=== PATIENT | female | born 1990 | race Caucasian/White ===

== ENCOUNTER → 2023-06-21 09:50 | Outpatient (BNVA) | payer OTHER, SELFPAY | PROVIDERS: Visit Provider Physician Assistant | DX: S39.012A Strain of muscle, fascia and tendon of lower back, initial encounter (principal); X50.1XXA Overexertion from prolonged static or awkward postures, initial encounter | CPT/HCPCS: 99203 ==

== ENCOUNTER → 2023-06-26 13:51 | Outpatient (BNVA) | payer OTHER, SELFPAY | PROVIDERS: Visit Provider Physician Assistant Medical | DX: S39.012A Strain of muscle, fascia and tendon of lower back, initial encounter (principal); X50.1XXA Overexertion from prolonged static or awkward postures, initial encounter | CPT/HCPCS: 99213 ==

== ENCOUNTER → 2023-06-29 14:55 | Outpatient (BNVA) | payer OTHER, SELFPAY | PROVIDERS: Visit Provider Physician Assistant Medical | DX: S39.012D Strain of muscle, fascia and tendon of lower back, subsequent encounter (principal); X50.1XXD Overexertion from prolonged static or awkward postures, subsequent encounter | CPT/HCPCS: 99213 ==

== ENCOUNTER → 2023-07-19 13:45 | Outpatient (BNVA) | payer OTHER, SELFPAY | PROVIDERS: Visit Provider Physician Assistant Medical | DX: S39.012D Strain of muscle, fascia and tendon of lower back, subsequent encounter (principal); X50.1XXD Overexertion from prolonged static or awkward postures, subsequent encounter | CPT/HCPCS: 99213 ==

== ENCOUNTER → 2023-08-10 13:31 | Outpatient (BNVA) | payer OTHER, SELFPAY | PROVIDERS: Visit Provider Physician Assistant Medical | DX: S39.012D Strain of muscle, fascia and tendon of lower back, subsequent encounter (principal); X50.1XXD Overexertion from prolonged static or awkward postures, subsequent encounter | CPT/HCPCS: 99213 ==

== ENCOUNTER → 2023-08-30 10:58 | Outpatient (BNVA) | payer OTHER, SELFPAY | PROVIDERS: Visit Provider Physician Assistant Medical | DX: S39.012D Strain of muscle, fascia and tendon of lower back, subsequent encounter (principal); X50.1XXD Overexertion from prolonged static or awkward postures, subsequent encounter | CPT/HCPCS: 99213 ==

== ENCOUNTER 2023-09-25 17:55 | Outpatient (REF) | payer OTHER, SELFPAY ==
--- NOTE | ~2023-09-25 | MR_ITS ---
EXAMINATION: MR LUMBAR SPINE WITHOUT CONTRAST CLINICAL INFORMATION: Lumbar radiculopathy COMPARISON: None available. TECHNIQUE: MRI of the lumbar spine was obtained using routine sequences without contrast. FINDINGS: The visualized lumbar vertebrae are intact with normal alignment. No focal bone lesion with abnormal signal can be seen. Evaluation of the intervertebral discs show: T12/L1: Intervertebral disc height is normal, with normal T2 signal. No focal disc herniation is seen. Bilateral T12/L1 neuroforamina are patent. Bilateral apophyseal joints are intact with normal alignment. L-1/L-2: Intervertebral disc height is normal, with normal T2 signal. No focal disc herniation is seen. Bilateral L1-L2 neuroforamina are patent. Bilateral apophyseal joints are intact with normal alignment. L2/L3: Intervertebral disc height is normal, with normal T2 signal. No focal disc herniation is seen. Bilateral L2-L3 neuroforamina are patent. Bilateral apophyseal joints are intact with normal alignment. L3/L4: Intervertebral disc height is normal, with mild loss of T2 signal. Mild asymmetric right posterior disc protrusion mildly effacing right lateral recess is seen. Bilateral L3-L4 neuroforamina are patent. Bilateral apophyseal joints are intact with normal alignment. L4/L5: Intervertebral disc height is normal, with mild loss of T2 signal. No focal disc herniation is seen. Bilateral L4-L5 neuroforamina are patent. Bilateral apophyseal joints are intact with normal alignment. L5/S1: Intervertebral disc height is mildly decreased, with normal T2 signal. No focal disc herniation is seen. Bilateral L5-S1 neuroforamina are patent. Bilateral apophyseal joints are intact with normal alignment. Conus medullaris is seen normally at L1 level. MR/MR lumbar spine wo con IMPRESSION: 1. Mild asymmetric right posterior disc protrusion at L3-L4 mildly effacing right lateral recess. 2. Mild lumbar disc desiccation at L3-L4 and L4-L5.
== END 2023-09-25 17:56 | disposition home or self-care (01) ==
LOC: HO.MRI 17:55
PROVIDERS: Visit Provider Internal Medicine
DX: M54.50 Low back pain, unspecified (principal)
CPT/HCPCS: 72148

== ENCOUNTER → 2023-10-16 11:39 | Outpatient (BNVA) | payer OTHER, SELFPAY | PROVIDERS: Visit Provider Physician Assistant Medical | DX: M51.17 Intervertebral disc disorders with radiculopathy, lumbosacral region (principal) | CPT/HCPCS: 99213 ==

== ENCOUNTER 2023-10-26 09:47 | Outpatient (AMB) | payer OTHER, SELFPAY ==
--- NOTE | 2023-10-26 09:48 | A.OFFVIS_ITS ---
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 Patient reports work-related injury on 06/21/23 at [employer]. Worker's Comp case #[id number]. 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 Patient was evaluated at [facility] and was initially treated with muscle relaxant, oral steroids, Naproxen and Physical Therapy at [facility]. She had no improvement in pain and function with PT. She has tried to return to work with restrictions but given the nature of her work which involves heavy lifting, twisting, arching back and bending, she can return to work without restrictions. Pain affects her daily activities and functioning, mobility, sleep, work and social interactions. Lumbar spine was completed on 09/25/23, report is noted below. At this time, she has not reached maximum medical improvement and is interested to undergo therapeutic injection to alleviate pain and increase functioning with plans to return to workforce. Denies any fever, chills, abdominal or groin pain, weakness, foot drop, bladder or bowel dysfunction or saddle anesthesia. Oswestry Low Back Disability Score=18 (moderate disability) Location: Right sided lower back, occasionally radiates down right leg Duration: 1 year, worsening since 06/21/23 due work-related injury Characteristics of symptom or complaint: Aching, numbness, tightness, radiating, sore Aggravating or associated factors: Sitting, prolonged standing >walking, bending, twisting, arching back Relieving factors: Heating pad, TENS unit, cyclobenzaprine Treatment: PT at [facility], lumbar spine MRI [facility] Medical History (Updated 10/27/23 @ 19:04 by JOAN Veras) No pertinent past medical history Surgical History (Updated 10/27/23 @ 18:56 by JOAN Veras) No pertinent past surgical history Social History (Updated 10/26/23 @ 10:00 by Rachel Arzate) Alcohol intake: current Alcohol intake frequency: a few times a week Alcohol type: hard liquor and other Tobacco use type: Smokeless Tobacco Review of Systems Const All systems reviewed & are unremarkable except as noted in HPI and below Physical Exam Vital Signs: Last Vital Signs Pulse 76 10/26/23 09:58 BP 166/90 H 10/26/23 09:58 Pulse Ox 100 10/26/23 09:58 Oxygen Delivery Method Room Air 10/26/23 09:58 BMI result Body Mass Index 39.7 General: Appears afebrile. Alert and oriented. Mood and affect appropriate. Follows and participates in conversation appropriately. Respiratory effort is unlabored. No cough. Able to transition from sit to stand unassisted. Ambulates with bilaterally normal heel strike and toe off. General: Yes no CVA tenderness Back/Spine/Pelvis Other: Patient is able to walk and stand on heels and tip toes with no difficulties demonstrating good motor tone. No limping. Can flex forward to degrees and extend to 5-10 degrees before experiencing lumbar pain. Demonstrates 5/5 strength of quadriceps bilaterally as well as flexion/dorsiflexion of bilateral feet against resistance. 2+ pedal pulses bilaterally. Straight leg rise with dorsiflexion negative bilaterally. +2 patellar and achilles reflexes bilaterally. Facet loading test positive bilaterally. Penny sign, Renan?s, Pelvic compression and Stinchfield tests are negative bilaterally. No groin pain with I/E hip rotations. Significant paraspinals tenderness mostly on the right side, mid and lower back. Valsalva maneuver negative. Back: no CVA tenderness Cervical Spine: cervical ROM normal, cervical muscular tenderness and No C ervical spine tenderness Thoracic/Lumbar Spine: thoracic and lumbar spine normal to inspection, No Thoracic/lumbar spine scar(s), Lasegue's sign negative, straight leg raise ne gative bilaterally, pain with thoraco-lumbar ROM, paraspinal muscle tenderness on the right greater than left, No thoracic spinal tenderness and lumbar spinal tenderness at L3, at L4 and at L5 Pelvis: no buttock tenderness Sacroiliac joints: bilaterally nontender Extrem General: Yes capillary refill normal, Yes no clubbing, cyanosis or edema and Yes no calf tenderness Results Reviewed Results Reviewed: MR LUMBAR SPINE WITHOUT CONTRAST 09/25/23 CLINICAL INFORMATION: Lumbar radiculopathy COMPARISON: None available. TECHNIQUE: MRI of the lumbar spine was obtained using routine sequences without contrast. FINDINGS: The visualized lumbar vertebrae are intact with normal alignment. No focal bone lesion with abnormal signal can be seen. Evaluation of the intervertebral discs show: T12/L1: Intervertebral disc height is normal, with normal T2 signal. No focal disc herniation is seen. Bilateral T12/L1 neuroforamina are patent. Bilateral apophyseal joints are intact with normal alignment. L-1/L-2: Intervertebral disc height is normal, with normal T2 signal. No focal disc herniation is seen. Bilateral L1-L2 neuroforamina are patent. Bilateral apophyseal joints are intact with normal alignment. L2/L3: Intervertebral disc height is normal, with normal T2 signal. No focal disc herniation is seen. Bilateral L2-L3 neuroforamina are patent. Bilateral apophyseal joints are intact with normal alignment. L3/L4: Intervertebral disc height is normal, with mild loss of T2 signal. Mild asymmetric right posterior disc protrusion mildly effacing right lateral recess is seen. Bilateral L3-L4 neuroforamina are patent. Bilateral apophyseal joints are intact with normal alignment. L4/L5: Intervertebral disc height is normal, with mild loss of T2 signal. No focal disc herniation is seen. Bilateral L4-L5 neuroforamina are patent. Bilateral apophyseal joints are intact with normal alignment. L5/S1: Intervertebral disc height is mildly decreased, with normal T2 signal. No focal disc herniation is seen. Bilateral L5-S1 neuroforamina are patent. Bilateral apophyseal joints are intact with normal alignment. Conus medullaris is seen normally at L1 level. IMPRESSION: 1. Mild asymmetric right posterior disc protrusion at L3-L4 mildly effacing right lateral recess. 2. Mild lumbar disc desiccation at L3-L4 and L4-L5. Assessment & Plan Assessment & Plan (1) Protrusion of lumbar intervertebral disc: Code(s): M51.26 - Other intervertebral disc displacement, lumbar region Category: Medical (2) Lumbar radiculopathy: Code(s): M54.16 - Radiculopathy, lumbar region Category: Medical (3) Lumbar back pain with radiculopathy affecting right lower extremity: Code(s): M54.16 - Radiculopathy, lumbar region Category: Medical (4) Muscle spasm of back: Code(s): M62.830 - Muscle spasm of back Category: Medical Plan Lumbar spine imaging to assess stability with flexion and extension views, degree of degenerative changes, any subluxation, listhesis, or pars defects. Pain and back exam consistent with right posterior disc protrusion at L3-L4 level per recent MRI findings. Back pain has been resistant to conservative treatments, patient is interested in therapeutic injection to address her low back pain. Schedule right L3-L4 TFESI with local and fluoroscopy. Expectations, risks and benefits were reviewed. Patient is aware she will be contacted to schedule this procedure. Continue gentle stretching exercises, TENS unit, avoid heavy lifting and strenuous activity. Discussed importance of adequate hydration, good posture, weight optimization and proper body mechanics. Script provided for meloxicam, patient will stop naproxen and other NSAIDs while taking this. Side effects and precautions discussed with patient today. Continue cyclobenzaprine as needed. All questions were answered and the patient is in agreement of plan. Follow-up after injections and sooner as needed. Orders: Orders XR lumbar spine 4V min 10/26/23 M51.26 - Other intervertebral disc displacement, lumbar region, M54.16 - Radiculopathy, lumbar region Medications: New meloxicam Take it with food and full glass of water. Avoid other NSAIDs. 15 mg PO DAILY 30 days 30 tabs 0RF pain M51.26 - Other intervertebral disc displacement, lumbar region, M54.16 - Radiculopathy, lumbar region Discontinued naproxen Discontinued Reason: Doctor's Order 500 mg PO BID PRN 28 tabs 0RF back pain Coding Level of Care Code New Pt Level 4 (38160) Diagnoses Protrusion of lumbar intervertebral disc M51.26 Lumbar radiculopathy M54.16 Lumbar back pain with radiculopathy affecting right lower extremity M54.16 Muscle spasm of back M62.830
[2023-10-26 09:58] VITALS: BP 166/90; PULSE 76; O2SAT 100; BMI 39.7
== END 2023-10-26 10:42 | disposition home or self-care (01) ==
PROVIDERS: Visit Provider Nurse Practitioner Family
DX: M51.26 Other intervertebral disc displacement, lumbar region (principal); M54.16 Radiculopathy, lumbar region; M62.830 Muscle spasm of back
CPT/HCPCS: 99204

== ENCOUNTER 2023-10-26 09:47 | Outpatient (REF) | payer OTHER, SELFPAY ==
--- NOTE | ~2023-10-26 | XR_ITS ---
EXAMINATION: XR LUMBOSACRAL SPINE WITH OBLIQUES CLINICAL INFORMATION: Radiculopathy lumbar region. COMPARISON: None available. TECHNIQUE: 5 views of the lumbar spine. FINDINGS: Dextroscoliosis of the lumbar spine. IUD in the pelvis. Facet arthritis in the lower lumbar spine. Mild multilevel lumbar spondylosis with mild loss of disc space height at L5-S1. Degenerative changes in the bilateral sacroiliac joints, right greater than left. XR/XR lumbar spine 4V min IMPRESSION: 1. Mild multilevel lumbar spondylosis with mild loss of disc space height at L5-S1. 2. Facet arthritis in the lower lumbar spine.
== END 2023-10-26 09:48 | disposition home or self-care (01) ==
LOC: HO.XRAY 09:47
PROVIDERS: Visit Provider Nurse Practitioner Family
DX: M51.26 Other intervertebral disc displacement, lumbar region (principal); M54.16 Radiculopathy, lumbar region; M62.830 Muscle spasm of back
CPT/HCPCS: 72110; 99202

== ENCOUNTER → 2023-11-13 11:35 | Outpatient (BNVA) | payer OTHER, SELFPAY | PROVIDERS: Visit Provider Physician Assistant Medical | DX: M54.17 Radiculopathy, lumbosacral region (principal) | CPT/HCPCS: 99213 ==

== ENCOUNTER → 2023-12-12 13:08 | Outpatient (BNVA) | payer OTHER, SELFPAY | PROVIDERS: Visit Provider Physician Assistant Medical | DX: M54.16 Radiculopathy, lumbar region (principal) | CPT/HCPCS: 99213 ==

== ENCOUNTER 2023-12-21 06:11 | Outpatient (REF) | payer OTHER, SELFPAY | END 2023-12-21 06:12 | disposition home or self-care (01) | LOC: CF 06:11 | PROVIDERS: Visit Provider Internal Medicine | DX: M54.16 Radiculopathy, lumbar region (principal) | CPT/HCPCS: 64483; J1100; Q9967 ==

== ENCOUNTER 2023-12-21 12:42 | Outpatient (AMB) | payer OTHER, SELFPAY ==
[2023-12-21 12:49] VITALS: BP 195/93; PULSE 109; RESP 19; O2SAT 100
--- NOTE | 2023-12-21 13:11 | A.OFFVIS_ITS ---
Vital Signs 12/21/23 12:49 12/21/23 13:13 BP 195/93 H 174/93 H Blood Pressure Location Lt brachial Lt brachial Position Sitting Sitting Respiration 19 17 Pulse 109 H 83 Pulse Source Pulse Oximeter Pulse Oximeter Pulse Oximetry (%) 100 99 Oxygen Delivery Method Room Air Room Air Comment Pre-op Post-op Intake Visit Reasons: Right L3-L4 TFESI/ ATIVAN Allergies No Known Allergies Allergy (Verified 10/26/23 09:56) HPI HPI Right L3-L4 TFESI/ ATIVAN: Details: Patient presents for scheduled procedure. Denies any recent cough, cold, infection, fever or other significant changes in medical history since last office visit. [facility] Medical History (Updated 10/27/23 @ 19:04 by JOAN Veras) No pertinent past medical history Surgical History (Updated 10/27/23 @ 18:56 by JOAN Veras) No pertinent past surgical history Social History (Updated 10/26/23 @ 10:00 by Rachel Arzate) Alcohol intake: current Alcohol intake frequency: a few times a week Alcohol type: hard liquor and other Tobacco use type: Smokeless Tobacco Physical Exam Vital Signs: Last Vital Signs Pulse 83 12/21/23 13:13 Resp 17 12/21/23 13:13 BP 174/93 H 12/21/23 13:13 Pulse Ox 99 12/21/23 13:13 Oxygen Delivery Method Room Air 12/21/23 13:13 Office Procedures Details: Transforaminal epidural steroid injection, right L3-4 After obtaining written consent, pre-procedure blood pressure and heart rate were stable and recorded in the nursing record. The patient was placed in the prone position on the fluoroscopy table. The lumbosacral area was prepped with chloraprep, allowed to dry and draped in sterile fashion. Using fluoroscopy, the skin overlying our target was anesthetized with 0.5% lidocaine. A 22 gauge 3.5 inch spinal needle was advanced to the safe triangle in the upper pole of the right L3 foramen. No paresthesias were elicited with needle placement and aspiration was negative for blood and CSF. Correct needle position was confirmed with approximately 1 ml contrast dye (Omnipaque 180 mg/ml) injected under real-time fluoroscopy. No evidence of vascular or intrathecal uptake was seen and there was both epidural and per ipheral spread of the contrast agent. 10 mg dexamethasone plus 1 ml containing 0.5% lidocaine was slowly injected. The needle was flushed and removed. The skin was cleansed and a sterile bandages were applied. The patient tolerated the procedure well and no complications were encountered. Following the procedure the patient's vital signs were stable. The patient was discharged home in good condition with post-procedural instructions. Time Out: Immediately prior to the procedure, the following was verbally confirmed that there is a signed consent form and that the correct patient, planned procedure, site and side are consistent with documentation and that necessary equipment and/or blood products are available prior to the start of the case. Complications: none EBL: <5 cc 94034 - Lumbar/Sacral Procedure code (CPT) selection complete Assessment & Plan Assessment & Plan (1) Lumbar radiculopathy: Code(s): M54.16 - Radiculopathy, lumbar region Category: Medical Plan Patient is status post right L3-4 TFESI. Patient tolerated procedure well and was discharged home in stable condition with discharge instructions. All questions were answered. We will follow-up via telephone or in clinic to assess response to therapy. A follow-up appointment was made during today's visit. Orders: Orders FL guidance in treatment room Today M54.16 - Radiculopathy, lumbar region Medications: New lorazepam (Ativan) Take 30 minutes prior to arrival to procedure 1 mg PO ONCE 1 tab 0RF anxiety Coding Level of Care Code Procedure Only Diagnoses Lumbar radiculopathy M54.16 CPT Codes Transforaminal Epidural Steroid Inj - TESI 3: 90794 - Lumbar/Sacral ([id number])
[2023-12-21 13:13] VITALS: BP 174/93; PULSE 83; RESP 17; O2SAT 99
== END 2023-12-21 13:09 | disposition home or self-care (01) ==
LOC: HO.PMCPRC 12:42
PROVIDERS: Visit Provider Internal Medicine
DX: M54.16 Radiculopathy, lumbar region (principal)
CPT/HCPCS: 64483

== ENCOUNTER → 2024-01-02 10:54 | Outpatient (BNVA) | payer OTHER, SELFPAY | PROVIDERS: Visit Provider Physician Assistant Medical | DX: M54.16 Radiculopathy, lumbar region (principal) | CPT/HCPCS: 99213 ==

== ENCOUNTER 2024-01-18 09:55 | Outpatient (AMB) | payer OTHER, SELFPAY ==
--- NOTE | 2024-01-18 09:58 | MHC.OFFVIS ---
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 Colon. She reports 85% ongoing pain relief since procedure with significant improvement with walking, daily activities and sleep. Patient reports increased low back pain with prolonged sitting or standing and bending backwards reproduces mild to moderate pain. She continues to participate in PT and reports increased axial low back pain with stretching and laying supine during exercises. She returned back to work with restrictions yesterday and reports increased pain prolonged standing. Denies any bladder or bowel dysfunction or saddle anesthesia. Past Procedures: 12/21/23: Right L3-L4 TFESI-ongoing 85% pain relief PRIOR: Patient is a 33 years old female presents today with right sided low back pain. Patient reports work-related injury on 06/21/23 at [employer]. Worker's Comp case #[id number]. 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 Patient was evaluated at [facility] [place] [facility] and was initially treated with muscle relaxant, oral steroids, Naproxen and Physical Therapy at [facility]. She had no improvement in pain and function with PT. She has tried to return to work with restrictions but given the nature of her work which involves heavy lifting, twisting, arching back and bending, she can return to work without restrictions. Pain affects her daily activities and functioning, mobility, sleep, work and social interactions. Lumbar spine was completed on 09/25/23, report is noted below. At this time, she has not reached maximum medical improvement and is interested to undergo therapeutic injection to alleviate pain and increase functioning with plans to return to workforce. Denies any fever, chills, abdominal or groin pain, weakness, foot drop, bladder or bowel dysfunction or saddle anesthesia. Oswestry Low Back Disability Score=18 (moderate disability) Location: Right sided lower back, occasionally radiates down right leg Duration: 1 year, worsening since 06/21/23 due work-related injury Characteristics of symptom or complaint: Aching, numbness, tightness, radiating, sore Aggravating or associated factors: Sitting, prolonged standing >walking, bending, twisting, arching back Relieving factors: Heating pad, TENS unit, cyclobenzaprine Treatment: PT at [facility], lumbar spine MRI [facility] Medical History No pertinent past medical history Surgical History No pertinent past surgical history Social History Alcohol intake: current Alcohol intake frequency: a few times a week Alcohol type: hard liquor and other Tobacco use type: Smokeless Tobacco Review of Systems Const All systems reviewed & are unremarkable except as noted in HPI and below Physical Exam General: Appears afebrile. Alert and oriented. Mood and affect appropriate. Follows and participates in conversation appropriately. Respiratory effort is unlabored. No cough. Able to transition from sit to stand unassisted. Ambulates with bilaterally normal heel strike and toe off. General: Yes no CVA tenderness Back/Spine/Pelvis Other: Limited lumbar ROM with extension which reproduces moderate pain. Normal non-antalgic gait. No limping. Demonstrates 5/5 strength of quadriceps bilaterally as well as flexion/dorsiflexion of bilateral feet against resistance. 2+ pedal pulses bilaterally. Straight leg rise with dorsiflexion negative bilaterally. +2 patellar and achilles reflexes bilaterally. Facet loading test positive bilaterally. Penny sign, Renan?s, Pelvic compression and Stinchfield tests are negative bilaterally. No groin pain with I/E hip rotations. Valsalva maneuver negative. Back: no CVA tenderness Cervical Spine: cervical ROM normal, cervical muscular tenderness and No Cervical spine tenderness Thoracic/Lumbar Spine: thoracic and lumbar spine normal to inspection, No Thoracic/lumbar spine scar(s), Lasegue's sign negative, straight leg raise negative bilaterally, pain with thoraco-lumbar ROM, paraspinal muscle tenderness on the right greater than left, No thoracic spinal tenderness and lumbar spinal tenderness at L3, at L4 and at L5 Pelvis: no buttock tenderness Sacroiliac joints: bilaterally nontender Extrem General: Yes capillary refill normal, Yes no clubbing, cyanosis or edema and Yes no calf tenderness Results Reviewed Results Reviewed: MR LUMBAR SPINE WITHOUT CONTRAST 09/25/23 CLINICAL INFORMATION: Lumbar radiculopathy COMPARISON: None available. TECHNIQUE: MRI of the lumbar spine was obtained using routine sequences without contrast. FINDINGS: The visualized lumbar vertebrae are intact with normal alignment. No focal bone lesion with abnormal signal can be seen. Evaluation of the intervertebral discs show: T12/L1: Intervertebral disc height is normal, with normal T2 signal. No focal disc herniation is seen. Bilateral T12/L1 neuroforamina are patent. Bilateral apophyseal joints are intact with normal alignment. L-1/L-2: Intervertebral disc height is normal, with normal T2 signal. No focal disc herniation is seen. Bilateral L1-L2 neuroforamina are patent. Bilateral apophyseal joints are intact with normal alignment. L2/L3: Intervertebral disc height is normal, with normal T2 signal. No focal disc herniation is seen. Bilateral L2-L3 neuroforamina are patent. Bilateral apophyseal joints are intact with normal alignment. L3/L4: Intervertebral disc height is normal, with mild loss of T2 signal. Mild asymmetric right posterior disc protrusion mildly effacing right lateral recess is seen. Bilateral L3-L4 neuroforamina are patent. Bilateral apophyseal joints are intact with normal alignment. L4/L5: Intervertebral disc height is normal, with mild loss of T2 signal. No focal disc herniation is seen. Bilateral L4-L5 neuroforamina are patent. Bilateral apophyseal joints are intact with normal alignment. L5/S1: Intervertebral disc height is mildly decreased, with normal T2 signal. No focal disc herniation is seen. Bilateral L5-S1 neuroforamina are patent. Bilateral apophyseal joints are intact with normal alignment. Conus medullaris is seen normally at L1 level. IMPRESSION: 1. Mild asymmetric right posterior disc protrusion at L3-L4 mildly effacing right lateral recess. 2. Mild lumbar disc desiccation at L3-L4 and L4-L5. XR LUMBOSACRAL SPINE WITH OBLIQUES 10/26/23 CLINICAL INFORMATION: Radiculopathy lumbar region. FINDINGS: Dextroscoliosis of the lumbar spine. IUD in the pelvis. Facet arthritis in the lower lumbar spine. Mild multilevel lumbar spondylosis with mild loss of disc space height at L5-S1. Degenerative changes in the bilateral sacroiliac joints, right greater than left. IMPRESSION: 1. Mild multilevel lumbar spondylosis with mild loss of disc space height at L5-S1. 2. Facet arthritis in the lower lumbar spine. Assessment & Plan Assessment & Plan (1) Protrusion of lumbar intervertebral disc: Code(s): M51.26 - Other intervertebral disc displacement, lumbar region Category: Medical (2) Lumbar radiculopathy: Code(s): M54.16 - Radiculopathy, lumbar region Category: Medical (3) Lumbar back pain with radiculopathy affecting right lower extremity: Code(s): M54.16 - Radiculopathy, lumbar region Category: Medical (4) Muscle spasm of back: Code(s): M62.830 - Muscle spasm of back Category: Medical (5) Lumbosacral spondylosis: Code(s): M47.817 - Spondylosis without myelopathy or radiculopathy, lumbosacral region Category: Medical Plan Patient is one month status post right L3-L4 TFESI injection with partial improvement in her ADLs, mobility and sleep. She also has facetogenic and axial low back pain. Patient will continue with physical therapy and home exercise program. If no pain or function improvement after PT, will consider diagnostic lumbar medial branch blocks to address axial low back pain. Continue gentle stretching exercises, TENS unit, avoid heavy lifting and strenuous activity. Discussed importance of adequate hydration, good posture, weight optimization and proper body mechanics. Continue meloxicam and cyclobenzaprine as needed. Work noted provided today per patient's requests. She returned to work 01/17/24 with light duty restrictions. All questions were answered and the patient is in agreement of plan. Follow-up after injections and sooner as needed. Coding Level of Care Code Est Pt Level 4 (27708) Complex EM visit Add On G2211 Diagnoses Protrusion of lumbar intervertebral disc M51.26 Lumbar radiculopathy M54.16 Lumbar back pain with radiculopathy affecting right lower extremity M54.16 Muscle spasm of back M62.830 Lumbosacral spondylosis M47.817
[2024-01-18 10:02] VITALS: BP 164/86; PULSE 63; O2SAT 99; BMI 39.2
== END 2024-01-18 10:21 | disposition home or self-care (01) ==
PROVIDERS: Visit Provider Nurse Practitioner Family
DX: M51.26 Other intervertebral disc displacement, lumbar region (principal); M54.16 Radiculopathy, lumbar region; M62.830 Muscle spasm of back; M47.817 Spondylosis without myelopathy or radiculopathy, lumbosacral region
CPT/HCPCS: 99214; G2211

== ENCOUNTER → 2024-01-18 09:55 | Outpatient (BNVA) | payer OTHER, SELFPAY | PROVIDERS: Visit Provider Nurse Practitioner Family | DX: M51.26 Other intervertebral disc displacement, lumbar region (principal); M62.830 Muscle spasm of back; M47.26 Other spondylosis with radiculopathy, lumbar region; Z98.890 Other specified postprocedural states | CPT/HCPCS: 99212 ==

== ENCOUNTER → 2024-01-18 15:14 | Outpatient (BNVA) | payer OTHER, SELFPAY | PROVIDERS: Visit Provider Physician Assistant Medical | DX: M51.17 Intervertebral disc disorders with radiculopathy, lumbosacral region (principal); S39.012D Strain of muscle, fascia and tendon of lower back, subsequent encounter; X50.3XXD Overexertion from repetitive movements, subsequent encounter | CPT/HCPCS: 99213 ==

== ENCOUNTER → 2024-01-23 14:15 | Outpatient (BNVA) | payer OTHER, SELFPAY | PROVIDERS: Visit Provider Physician Assistant Medical | DX: M51.17 Intervertebral disc disorders with radiculopathy, lumbosacral region (principal) | CPT/HCPCS: 99213 ==

== ENCOUNTER → 2024-02-14 14:12 | Outpatient (BNVA) | payer OTHER, SELFPAY | PROVIDERS: Visit Provider Physician Assistant Medical | DX: M54.9 Dorsalgia, unspecified (principal) | CPT/HCPCS: 99213 ==

== ENCOUNTER → 2024-03-14 13:34 | Outpatient (BNVA) | payer OTHER, SELFPAY | PROVIDERS: Visit Provider Physician Assistant Medical | DX: M51.17 Intervertebral disc disorders with radiculopathy, lumbosacral region (principal) | CPT/HCPCS: 99213 ==

== ENCOUNTER 2024-03-26 12:53 | Outpatient (AMB) | payer OTHER, SELFPAY ==
--- NOTE | 2024-03-26 13:00 | MHC.OFFVIS ---
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 Denies any new recent injuries, trauma, or falls. She reports no radiation of pain since injection in November. However, her pain is predominantly axial with sacroiliac joint pain components. Pain increases with stretching, bending, standing, lifting, pulling, ADLs and work. She has been managing her symptoms with NSAIDs, heat pad and muscle relaxant. She has completed physical therapy and continues home exercise program but finds exercise and movements increase her symptoms. Denies any fever or chills, weakness, foot drop, bladder or bowel dysfunction or saddle anesthesia. Past Procedures: 12/21/23: Right L3-L4 TFESI-ongoing 85% pain relief PRIOR: Patient is a 33 years old female presents today with right sided low back pain. Patient reports work-related injury on 06/21/23 at [employer]. Worker's Comp case #[id number]. 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 Patient was [place] [facility] [place] [facility] and was initially treated with muscle relaxant, oral steroids, Naproxen and Physical Therapy at [facility]. She had no improvement in pain and function with PT. She has tried to return to work with restrictions but given the nature of her work which involves heavy lifting, twisting, arching back and bending, she can return to work without restrictions. Pain affects her daily activities and functioning, mobility, sleep, work and social interactions. Lumbar spine was completed on 09/25/23, report is noted below. At this time, she has not reached maximum medical improvement and is interested to undergo therapeutic injection to alleviate pain and increase functioning with plans to return to workforce. Denies any fever, chills, abdominal or groin pain, weakness, foot drop, bladder or bowel dysfunction or saddle anesthesia. Oswestry Low Back Disability Score=18 (moderate disability) Location: Right sided lower back, occasionally radiates down right leg Duration: 1 year, worsening since 06/21/23 due work-related injury Characteristics of symptom or complaint: Aching, numbness, tightness, radiating, sore Aggravating or associated factors: Sitting, prolonged standing >walking, bending, twisting, arching back Relieving factors: Heating pad, TENS unit, cyclobenzaprine Treatment: PT at [facility], lumbar spine MRI [facility] Medical History No pertinent past medical history Surgical History No pertinent past surgical history Social History Alcohol intake: current Alcohol intake frequency: a few times a week Alcohol type: hard liquor and other Tobacco use type: Smokeless Tobacco Review of Systems Const All systems reviewed & are unremarkable except as noted in HPI and below Physical Exam Vital Signs: Last Vital Signs Pulse 91 03/26/24 13:05 BP 183/97 H 03/26/24 13:05 Pulse Ox 98 03/26/24 13:05 Oxygen Delivery Method Room Air 03/26/24 13:05 BMI result Body Mass Index 40.5 General: Appears afebrile. Alert and oriented. Mood and affect appropriate. Follows and participates in conversation appropriately. Respiratory effort is unlabored. No cough. Able to transition from sit to stand unassisted. Ambulates with bilaterally normal heel strike and toe off. General: Yes no CVA tenderness Back/Spine/Pelvis Other: Limited lumbar ROM with extension which reproduces moderate pain. Normal non-antalgic gait. Demonstrates 5/5 strength of quadriceps bilaterally as well as flexion/dorsiflexion of bilateral feet against resistance. 2+ pedal pulses bilaterally. Straight leg rise with dorsiflexion negative bilaterally. +2 patellar and achilles reflexes bilaterally. Facet loading test positive bilaterally, right>left. Penny sign positive bilaterally, Renan?s, Pelvic compression and Stinchfield tests are positive on the right, equivocal on the left. No groin pain with I/E hip rotations. Valsalva maneuver negative. Back: no CVA tenderness Cervical Spine: cervical ROM normal, cervical muscular tenderness and No Cervical spine tenderness Thoracic/Lumbar Spine: thoracic and lumbar spine normal to inspection, No Thoracic/lumbar spine scar(s), Lasegue's sign negative, straight leg raise negative bilaterally, pain with thoraco-lumbar ROM, paraspinal muscle tenderness on the right greater than left, thoraco-lumbar ROM limited, No thoracic spinal tenderness and lumbar spinal tenderness at L3, at L4 and at L5 Pelvis: no buttock tenderness Sacroiliac joints: bilaterally nontender Extrem General: Yes capillary refill normal, Yes no clubbing, cyanosis or edema and Yes no calf tenderness Results Reviewed Results Reviewed: MR LUMBAR SPINE WITHOUT CONTRAST 09/25/23 CLINICAL INFORMATION: Lumbar radiculopathy COMPARISON: None available. TECHNIQUE: MRI of the lumbar spine was obtained using routine sequences without contrast. FINDINGS: The visualized lumbar vertebrae are intact with normal alignment. No focal bone lesion with abnormal signal can be seen. Evaluation of the intervertebral discs show: T12/L1: Intervertebral disc height is normal, with normal T2 signal. No focal disc herniation is seen. Bilateral T12/L1 neuroforamina are patent. Bilateral apophyseal joints are intact with normal alignment. L-1/L-2: Intervertebral disc height is normal, with normal T2 signal. No focal disc herniation is seen. Bilateral L1-L2 neuroforamina are patent. Bilateral apophyseal joints are intact with normal alignment. L2/L3: Intervertebral disc height is normal, with normal T2 signal. No focal disc herniation is seen. Bilateral L2-L3 neuroforamina are patent. Bilateral apophyseal joints are intact with normal alignment. L3/L4: Intervertebral disc height is normal, with mild loss of T2 signal. Mild asymmetric right posterior disc protrusion mildly effacing right lateral recess is seen. Bilateral L3-L4 neuroforamina are patent. Bilateral apophyseal joints are intact with normal alignment. L4/L5: Intervertebral disc height is normal, with mild loss of T2 signal. No focal disc herniation is seen. Bilateral L4-L5 neuroforamina are patent. Bilateral apophyseal joints are intact with normal alignment. L5/S1: Intervertebral disc height is mildly decreased, with normal T2 signal. No focal disc herniation is seen. Bilateral L5-S1 neuroforamina are patent. Bilateral apophyseal joints are intact with normal alignment. Conus medullaris is seen normally at L1 level. IMPRESSION: 1. Mild asymmetric right posterior disc protrusion at L3-L4 mildly effacing right lateral recess. 2. Mild lumbar disc desiccation at L3-L4 and L4-L5. XR LUMBOSACRAL SPINE WITH OBLIQUES 10/26/23 CLINICAL INFORMATION: Radiculopathy lumbar region. FINDINGS: Dextroscoliosis of the lumbar spine. IUD in the pelvis. Facet arthritis in the lower lumbar spine. Mild multilevel lumbar spondylosis with mild loss of disc space height at L5-S1. Degenerative changes in the bilateral sacroiliac joints, right greater than left. IMPRESSION: 1. Mild multilevel lumbar spondylosis with mild loss of disc space height at L5-S1. 2. Facet arthritis in the lower lumbar spine. Assessment & Plan Assessment & Plan (1) Protrusion of lumbar intervertebral disc: Code(s): M51.26 - Other intervertebral disc displacement, lumbar region Category: Medical (2) Muscle spasm of back: Code(s): M62.830 - Muscle spasm of back Category: Medical (3) Lumbosacral spondylosis: Code(s): M47.817 - Spondylosis without myelopathy or radiculopathy, lumbosacral region Category: Medical (4) Sacroiliac joint pain: Code(s): M53.3 - Sacrococcygeal disorders, not elsewhere classified Category: Medical Plan Schedule Diagnostic Bilateral L3-L4 DR L5 MBB with local and fluoroscopy. If she has significant relief from the diagnostic blocks for his axial low back pain, will consider either therapeutic injections, Sprint PNS or RFA depending on her preference. Informational pamphlets provided. Expectations, risks and benefits were reviewed. Patient is aware she will be contacted to schedule this procedure. Continue gentle stretching exercises, TENS unit, adequate hydration, good posture, weight optimization and proper body mechanics. Continue meloxicam, cyclobenzaprine and heat therapy as needed. All questions were answered and the patient is in agreement of plan. Follow-up after injections and sooner as needed. Coding Level of Care Code Est Pt Level 4 (00035) Complex EM visit Add On G2211 Diagnoses Protrusion of lumbar intervertebral disc M51.26 Muscle spasm of back M62.830 Lumbosacral spondylosis M47.817 Sacroiliac joint pain M53.3
[2024-03-26 13:05] VITALS: BP 183/97; PULSE 91; O2SAT 98; BMI 40.5
== END 2024-03-26 13:32 | disposition home or self-care (01) ==
PROVIDERS: Visit Provider Nurse Practitioner Family
DX: M51.26 Other intervertebral disc displacement, lumbar region (principal); M62.830 Muscle spasm of back; M47.817 Spondylosis without myelopathy or radiculopathy, lumbosacral region; M53.3 Sacrococcygeal disorders, not elsewhere classified
CPT/HCPCS: 99214; G2211

== ENCOUNTER → 2024-03-26 12:53 | Outpatient (BNVA) | payer OTHER, SELFPAY | PROVIDERS: Visit Provider Nurse Practitioner Family | DX: M54.16 Radiculopathy, lumbar region (principal); M62.830 Muscle spasm of back; M47.817 Spondylosis without myelopathy or radiculopathy, lumbosacral region; M53.3 Sacrococcygeal disorders, not elsewhere classified | CPT/HCPCS: 99212 ==

== ENCOUNTER 2024-04-11 08:57 | Outpatient (REF) | payer OTHER, SELFPAY ==
--- NOTE | ~2024-04-11 | FL_ITS ---
EXAMINATION: FL GUIDANCE ONLY HISTORY: M47.817 - Spondylosis without myelopathy or radiculopathy, lumbosacral r... COMPARISON: None available. TECHNIQUE: Fluoroscopy time: 0.2 minutes. Cumulative Dose: 3.09 mGy. DAP: 0.0340 uGy-m2 (microgray-meter squared). Images: 2. FINDINGS: Images demonstrate injection of the bilateral L3-4, L4-5, and L5-S1 facet joints, with a small amount of contrast material seen is joint. FL/FL guidance in treatment room IMPRESSION: Fluoroscopy during procedure. Please see procedure report for additional information. Electronically signed by: Kirt Ortega MD 04/15/2024 03:06 PM [place]
== END 2024-04-11 08:58 | disposition home or self-care (01) ==
LOC: CF 08:57
PROVIDERS: Visit Provider Internal Medicine
DX: M47.817 Spondylosis without myelopathy or radiculopathy, lumbosacral region (principal)
CPT/HCPCS: 64493; 64494; 99212; J2003; J2795; Q9967

== ENCOUNTER 2024-04-11 11:42 | Outpatient (AMB) | payer OTHER, SELFPAY ==
[2024-04-11 12:03] VITALS: BP 156/78; PULSE 99; O2SAT 98
--- NOTE | 2024-04-11 12:03 | MHC.AM.SUB ---
Vital Signs 04/11/24 12:03 04/11/24 12:22 BP 156/78 H 164/86 H Blood Pressure Location Lt brachial Lt brachial Position Sitting Sitting Pulse 99 79 Pulse Source Pulse Oximeter Pulse Oximeter Pulse Oximetry (%) 98 97 Oxygen Delivery Method Room Air Room Air Intake Visit Reasons: Shakeel Dx L3-L4-DR-L5 MBB/Ativan Allergies No Known Allergies Allergy (Verified 04/18/24 09:37) HPI HPI Shakeel Dx L3-L4-DR-L5 MBB/Ativan: Details: Patient presents for scheduled procedure. Denies any recent cough, cold, infection, fever or other significant changes in medical history since last office visit. Physical Exam Vital Signs: Last Vital Signs Pulse 79 04/11/24 12:22 BP 164/86 H 04/11/24 12:22 Pulse Ox 97 04/11/24 12:22 Oxygen Delivery Method Room Air 04/11/24 12:22 Office Procedures AMB Joint Injection/Aspiration Coding Procedure code (CPT) selection complete Lumbar/Sacral Facet Inj Details: Lumbar Medial Branch Block, bilateral L3, L4 medial branches and L5 Dorsal Ramus (2 levels, 3 nerves) After obtaining written consent, pre-procedure blood pressure and pulse were recorded and are in the nursing record for review. The patient was placed in a prone position. The respective lumbosacral area was prepped with chloraprep and draped in sterile fashion. The skin over the target medial branch nerves was anesthetized with 0.5% lidocaine. A 22 gauge 3.5 inch needle was inserted into the target medial branch nerve under fluoroscopic guidance. No paresthesias were elicited with needle placement and aspiration was negative for blood and CSF. Next, 0.2cc of omnipaque 180 was injected to verify positioning. Next 0.5 ml 0.5% ropivicaine was injected (0.5cc total per level). The identical procedure was performed at the remaining levels. The skin was cleansed and a sterile bandage was applied. Following the procedure the patient's vital signs were stable. The patient tolerated the procedure well and no complications were encountered. Following the procedure the patient's vital signs were stable. The patient was discharged home in good condition with post-procedural instructions. Time Out: Immediately prior to the procedure, the following was verbally confirmed that there is a signed consent form and that the correct patient, planned procedure, site and side are consistent with documentation and that necessary equipment and/or blood products are available prior to the start of the case. Complications: none EBL: <5 cc 12937 - with Fluoroscopy 98717 - second level, with Fluoroscopy Procedure code (CPT) selection complete [facility] Medical History No pertinent past medical history Surgical History No pertinent past surgical history Social History Alcohol intake: current Alcohol intake frequency: a few times a week Alcohol type: hard liquor and other Tobacco use type: Smokeless Tobacco Assessment & Plan Assessment & Plan (1) Lumbosacral spondylosis: Code(s): M47.817 - Spondylosis without myelopathy or radiculopathy, lumbosacral region Category: Medical Plan Patient is status post bilateral lower lumbar medial branch blocks. Patient tolerated procedure well and was discharged home in stable condition with discharge instructions. All questions were answered. We will follow-up via telephone or in clinic to assess response to therapy. A follow-up appointment was made during today's visit. Orders: Orders FL guidance in treatment room 04/11/24 M47.817 - Spondylosis without myelopathy or radiculopathy, lumbosacral region Medications: New lorazepam (Ativan) Take 30 minutes prior to arrival to procedure 1 mg PO ONCE 1 tab 0RF anxiety
[2024-04-11 12:22] VITALS: BP 164/86; PULSE 79; O2SAT 97
== END 2024-04-11 12:24 | disposition home or self-care (01) ==
LOC: HO.PMCPRC 11:42
PROVIDERS: Visit Provider Internal Medicine
DX: M47.817 Spondylosis without myelopathy or radiculopathy, lumbosacral region (principal)
CPT/HCPCS: 64493; 64494

== ENCOUNTER → 2024-04-11 14:19 | Outpatient (BNVA) | payer OTHER, SELFPAY | PROVIDERS: Visit Provider Physician Assistant Medical | DX: M51.17 Intervertebral disc disorders with radiculopathy, lumbosacral region (principal) | CPT/HCPCS: 99213 ==

== ENCOUNTER 2024-04-18 09:26 | Outpatient (AMB) | payer OTHER, SELFPAY ==
[2024-04-18 09:34] VITALS: BP 141/87; BMI 39.1
--- NOTE | 2024-04-18 09:34 | A.OFFVIS_ITS ---
Vital Signs 04/18/24 09:34 Height 5 ft 2.5 in Weight 217 lb BMI 39.1 BP 141/87 H Blood Pressure Location Rt brachial Position Sitting Intake Visit Reasons: s/p Shakeel Dx L3-L4-DR-L5 MBB Allergies No Known Allergies Allergy (Verified 04/18/24 09:37) HPI Comments Details: Patient presents today to assess response to Bilateral Diagnostic L3-L4-DR L5 MBB on 04/11/[address] Colon. Patient reports 100% pain relief for 4 days since procedure with significant improvement in her daily activities and functioning, ROM, and sleep. She has been back to work on a light duty. Back pain is predominantly axial with mild sacroiliac joint pain on the left. Patient continues with need to manage her symptoms with meloxicam, Tylenol, heating pad and muscle relaxant. She has completed physical therapy and continues home exercise program. Patient is interested to proceed with lumbar medial branch RFA for a longer term pain relief. Denies any fever or chills, weakness, foot drop, bladder or bowel dysfunction or saddle anesthesia. Past Procedures: 04/11/24: Bilateral Diagnostic L3-L4-DR L5 MBB- 100% pain relief for 4 days 12/21/23: Right L3-L4 TFESI-ongoing 85% pain relief PRIOR: Patient is a 33 years old female presents today with right sided low back pain. Patient reports work-related injury on 06/21/23 at [employer]. Worker's Comp case #[id number]. 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 Patient was evaluated at [facility] and was initially treated with muscle relaxant, oral steroids, Naproxen and Physical Therapy at [facility]. She had no improvement in pain and function with PT. She has tried to return to work with restrictions but given the nature of her work which involves heavy lifting, twisting, arching back and bending, she can return to work without restrictions. Pain affects her daily activities and functioning, mobility, sleep, work and social interactions. Lumbar spine was completed on 09/25/23, report is noted below. At this time, she has not reached maximum medical improvement and is interested to undergo therapeutic injection to alleviate pain and increase functioning with plans to return to workforce. Denies any fever, chills, abdominal or groin pain, weakness, foot drop, bladder or bowel dysfunction or saddle anesthesia. Oswestry Low Back Disability Score=18 (moderate disability) Location: Right sided lower back, occasionally radiates down right leg Duration: 1 year, worsening since 06/21/23 due work-related injury Characteristics of symptom or complaint: Aching, numbness, tightness, radiating, sore Aggravating or associated factors: Sitting, prolonged standing >walking, bending, twisting, arching back Relieving factors: Heating pad, TENS unit, cyclobenzaprine Treatment: PT at [facility], lumbar spine MRI [facility] Medical History No pertinent past medical history Surgical History No pertinent past surgical history Social History Alcohol intake: current Alcohol intake frequency: a few times a week Alcohol type: hard liquor and other Tobacco use type: Smokeless Tobacco Review of Systems Const All systems reviewed & are unremarkable except as noted in HPI and below Physical Exam Vital Signs: Last Vital Signs BP 141/87 H 04/18/24 09:34 BMI result Body Mass Index 39.1 General: Appears afebrile. Alert and oriented. Mood and affect appropriate. Follows and participates in conversation appropriately. Respiratory effort is unlabored. No cough. Able to transition from sit to stand unassisted. Ambulates with bilaterally normal heel strike and toe off. General: Yes no CVA tenderness Back/Spine/Pelvis Other: Limited lumbar ROM with extension which reproduces mild-moderate pain. Normal non-antalgic gait. Demonstrates 5/5 strength of quadriceps bilaterally as well as flexion/dorsiflexion of bilateral feet against resistance. 2+ pedal pulses bilaterally. Straight leg rise with dorsiflexion is negative bilaterally. +2 patellar and achilles reflexes bilaterally. Facet loading test positive bilatera lly, left>right. Penny sign positive bilaterally, Renan?s, Pelvic compression and Stinchfield tests are positive on the left. No groin pain with I/E hip rotations. Valsalva maneuver is negative. Back: no CVA tenderness Cervical Spine: cervical ROM normal, cervical muscular tenderness and No Cervical spine tenderness Thoracic/Lumbar Spine: thoracic and lumbar spine normal to inspection, No Thoracic/lumbar spine scar(s), Lasegue's sign negative, straight leg raise negative bilaterally, pain with thoraco-lumbar ROM, paraspinal muscle tenderness on the right greater than left, No thoracic spinal tenderness and lumbar spinal tenderness at L3, at L4 and at L5 Sacroiliac joints: on the right nontender and on the left tender to palpation Extrem General: Yes capillary refill normal, Yes no clubbing, cyanosis or edema and Yes no calf tenderness Results Reviewed Results Reviewed: MR LUMBAR SPINE WITHOUT CONTRAST 09/25/23 CLINICAL INFORMATION: Lumbar radiculopathy COMPARISON: None available. TECHNIQUE: MRI of the lumbar spine was obtained using routine sequences without contrast. FINDINGS: The visualized lumbar vertebrae are intact with normal alignment. No focal bone lesion with abnormal signal can be seen. Evaluation of the intervertebral discs show: T12/L1: Intervertebral disc height is normal, with normal T2 signal. No focal disc herniation is seen. Bilateral T12/L1 neuroforamina are patent. Bilateral apophyseal joints are intact with normal alignment. L-1/L-2: Intervertebral disc height is normal, with normal T2 signal. No focal disc herniation is seen. Bilateral L1-L2 neuroforamina are patent. Bilateral apophyseal joints are intact with normal alignment. L2/L3: Intervertebral disc height is normal, with normal T2 signal. No focal disc herniation is seen. Bilateral L2-L3 neuroforamina are patent. Bilateral apophyseal joints are intact with normal alignment. L3/L4: Intervertebral disc height is normal, with mild loss of T2 signal. Mild asymmetric right posterior disc protrusion mildly effacing right lateral recess is seen. Bilateral L3-L4 neuroforamina are patent. Bilateral apophyseal joints are intact with normal alignment. L4/L5: Intervertebral disc height is normal, with mild loss of T2 signal. No focal disc herniation is seen. Bilateral L4-L5 neuroforamina are patent. Bilateral apophyseal joints are intact with normal alignment. L5/S1: Intervertebral disc height is mildly decreased, with normal T2 signal. No focal disc herniation is seen. Bilateral L5-S1 neuroforamina are patent. Bilateral apophyseal joints are intact with normal alignment. Conus medullaris is seen normally at L1 level. IMPRESSION: 1. Mild asymmetric right posterior disc protrusion at L3-L4 mildly effacing right lateral recess. 2. Mild lumbar disc desiccation at L3-L4 and L4-L5. XR LUMBOSACRAL SPINE WITH OBLIQUES 10/26/23 CLINICAL INFORMATION: Radiculopathy lumbar region. FINDINGS: Dextroscoliosis of the lumbar spine. IUD in the pelvis. Facet arthritis in the lower lumbar spine. Mild multilevel lumbar spondylosis with mild loss of disc space height at L5-S1. Degenerative changes in the bilateral sacroiliac joints, right greater than left. IMPRESSION: 1. Mild multilevel lumbar spondylosis with mild loss of disc space height at L5-S1. 2. Facet arthritis in the lower lumbar spine. Assessment & Plan Assessment & Plan (1) Protrusion of lumbar intervertebral disc: Code(s): M51.26 - Other intervertebral disc displacement, lumbar region Category: Medical (2) Muscle spasm of back: Code(s): M62.830 - Muscle spasm of back Category: Medical (3) Lumbosacral spondylosis: Code(s): M47.817 - Spondylosis without myelopathy or radiculopathy, lumbosacral region Category: Medical (4) Sacroiliac joint pain: Code(s): M53.3 - Sacrococcygeal disorders, not elsewhere classified Category: Medical Plan Schedule Bilateral L3-L4 DR L5 Medial Branch RFA with sedation and fluoroscopy given positive results with resent diagnostic lumbar MBB injections, providing her complete axial low back pain relief for 4 days. Expectations, risks and benefits were reviewed. Patient is aware she will be contacted to schedule this procedure. We also reviewed therapeutic injections and neuromodulation with Sprint PNS trial. Patient is not interested in temporary lead placement given her nature of work and daily activities. Continue regular stretching exercises, TENS unit, adequate hydration, good posture, weight optimization and proper body mechanics. Continue meloxicam, cyclobenzaprine, Tylenol and heat therapy as needed. All questions were answered and the patient is in agreement of plan. Follow-up after RFA procedure and sooner as needed. Coding Level of Care Code Est Pt Level 4 (17157) Complex EM visit Add On G2211 Diagnoses Protrusion of lumbar intervertebral disc M51.26 Muscle spasm of back M62.830 Lumbosacral spondylosis M47.817 Sacroiliac joint pain M53.3
== END 2024-04-18 09:43 | disposition home or self-care (01) ==
PROVIDERS: Visit Provider Nurse Practitioner Family
DX: M51.26 Other intervertebral disc displacement, lumbar region (principal); M62.830 Muscle spasm of back; M47.817 Spondylosis without myelopathy or radiculopathy, lumbosacral region; M53.3 Sacrococcygeal disorders, not elsewhere classified
CPT/HCPCS: 99214; G2211

== ENCOUNTER → 2024-04-18 09:26 | Outpatient (BNVA) | payer OTHER, SELFPAY | PROVIDERS: Visit Provider Nurse Practitioner Family | DX: M51.26 Other intervertebral disc displacement, lumbar region (principal); M62.830 Muscle spasm of back; M47.817 Spondylosis without myelopathy or radiculopathy, lumbosacral region; M53.3 Sacrococcygeal disorders, not elsewhere classified | CPT/HCPCS: 99212 ==

== ENCOUNTER 2024-05-30 06:25 | Outpatient (REF) | payer OTHER, SELFPAY ==
--- NOTE | ~2024-05-30 | FL_ITS ---
EXAMINATION: XR FLUOROSCOPY WITH IMAGES CLINICAL INFORMATION: Lumbar pain management procedure. COMPARISON: 04/11/2024. TECHNIQUE: Fluoroscopy provided to: Dr. Colon Fluoroscopy time: 0.1 minutes DAP: 0.0712 mGycm2 Images: 2 FINDINGS: 2 images of the lower lumbar spine obtained during pain management injection bilaterally, likely of the facet joints L3-S1. Please refer to the full operative report for detail. FL/FL guidance in treatment room IMPRESSION: Fluoroscopic guidance. Electronically signed by: Cory Hightower MD 06/03/2024 11:46 AM EDT
== END 2024-05-30 06:26 | disposition home or self-care (01) ==
LOC: CF 06:25
PROVIDERS: Visit Provider Internal Medicine
DX: M47.817 Spondylosis without myelopathy or radiculopathy, lumbosacral region (principal)
CPT/HCPCS: 64493; 64494; J2003; J2795; J3301; Q9967

== ENCOUNTER 2024-05-30 12:53 | Outpatient (AMB) | payer OTHER, SELFPAY ==
--- NOTE | 2024-05-30 12:55 | A.OFFVIS_ITS ---
Vital Signs 05/30/24 13:01 05/30/24 13:35 BP 175/85 H 149/84 H Blood Pressure Location Lt brachial Lt brachial Position Sitting Sitting Pulse 89 75 Pulse Source Pulse Oximeter Pulse Oximeter Pulse Oximetry (%) 98 99 Oxygen Delivery Method Room Air Room Air Comment Pre-Op Post-Op Intake Visit Reasons: Shakeel theraputic L3-L4-DR-L5 MBB/ Ativan Allergies No Known Allergies Allergy (Verified 04/18/24 09:37) HPI HPI Shakeel theraputic L3-L4-DR-L5 MBB/ Ativan: Details: Patient presents for scheduled procedure. Denies any recent cough, cold, infection, fever or other significant changes in medical history since last office visit. [facility] Medical History No pertinent past medical history Surgical History No pertinent past surgical history Social History Alcohol intake: current Alcohol intake frequency: a few times a week Alcohol type: hard liquor and other Tobacco use type: Smokeless Tobacco Physical Exam Vital Signs: Last Vital Signs Pulse 89 05/30/24 13:01 BP 175/85 H 05/30/24 13:01 Pulse Ox 98 05/30/24 13:01 Oxygen Delivery Method Room Air 05/30/24 13:01 Office Procedures Lumbar/Sacral Facet Inj Details: Therapeutic Lumbar Medial Branch Block, Bilateral L3, L4 medial branches and L5 Dorsal Ramus (2 levels, 3 nerves) After obtaining written consent, pre-procedure blood pressure and pulse were recorded and are in the nursing record for review. The patient was placed in a prone position. The respective lumbosacral area was prepped with chloraprep and draped in sterile fashion. The skin over the target medial branch nerves was anesthetized with 0.5% lidocaine. A 22 gauge 3.5 inch needle was inserted into the target medial branch nerve under fluoroscopic guidance. No paresthesias were elicited with needle placement and aspiration was negative for blood and CSF. Next, 0.2cc of omnipaque 180 was injected to verify positioning. Next 13 mg of triamcinolone mixed with 1 ml 0.5% ropivacaine was injected (1 cc total per level). The identical procedure was performed at the remaining levels. The skin was cleansed and a sterile bandage was applied. Following the procedure the patient's vital signs were stable. The patient tolerated the procedure well and no complications were encountered. Following the procedure the patient's vital signs were stable. The patient was discharged home in good condition with post-procedural instructions. Time Out: Immediately prior to the procedure, the following was verbally confirmed that there is a signed consent form and that the correct patient, planned procedure, site and side are consistent with documentation and that necessary equipment and/or blood products are available prior to the start of the case. Complications: none EBL: <5 cc 35518 - with Fluoroscopy (bilateral) 80289 - second level, with Fluoroscopy Procedure code (CPT) selection complete Assessment & Plan Assessment & Plan (1) Lumbosacral spondylosis: Code(s): M47.817 - Spondylosis without myelopathy or radiculopathy, lumbosacral region Category: Medical Plan Patient is status post bilateral lower lumbar therapeutic medial branch blocks. Patient tolerated procedure well and was discharged home in stable condition with discharge instructions. All questions were answered. We will follow-up via telephone or in clinic to assess response to therapy. A follow-up appointment was made during today's visit. Orders: Orders FL guidance in treatment room Today M47.817 - Spondylosis without myelopathy or radiculopathy, lumbosacral region Coding Level of Care Code Procedure Only Diagnoses Lumbosacral spondylosis M47.817 CPT Codes Facet Injection-Lumbar/Sacral - CPT: 59976 - with Fluoroscopy ([id number]) Facet Injection-Lumbar/Sacral - CPT: 93363 - second level, with Fluoroscopy ([id number])
[2024-05-30 13:01] VITALS: BP 175/85; PULSE 89; O2SAT 98
[2024-05-30 13:35] VITALS: BP 149/84; PULSE 75; O2SAT 99
== END 2024-05-30 13:36 | disposition home or self-care (01) ==
LOC: HO.PMCPRC 12:53
PROVIDERS: Visit Provider Internal Medicine
DX: M47.817 Spondylosis without myelopathy or radiculopathy, lumbosacral region (principal)
CPT/HCPCS: 64493; 64494

== ENCOUNTER → 2024-06-03 13:40 | Outpatient (BNVA) | payer OTHER, SELFPAY | PROVIDERS: Visit Provider Physician Assistant Medical | DX: M51.17 Intervertebral disc disorders with radiculopathy, lumbosacral region (principal) | CPT/HCPCS: 99213 ==

== ENCOUNTER 2024-06-27 13:28 | Outpatient (AMB) | payer OTHER, SELFPAY ==
[2024-06-27 13:33] VITALS: BP 130/80; PULSE 88; O2SAT 98; BMI 38.7
--- NOTE | 2024-06-27 13:33 | MHC.OFFVIS ---
Vital Signs 06/27/24 13:33 Height 5 ft 2.5 in Weight 215 lb BMI 38.7 BP 130/80 Blood Pressure Location Lt brachial Position Sitting Pulse 88 Pulse Source Pulse Oximeter Pulse Oximetry (%) 98 Oxygen Delivery Method Room Air Intake Visit Reasons: s/p nancy Theraputic L3-L4-DR-L5 MBB Allergies No Known Allergies Allergy (Verified 06/27/24 13:36) HPI Comments Details: Patient presents today to assess response to Bilateral therapeutic L3-L4 DR L5 MBB on 05/30/[address] Colon. Although she experienced exacerbated pain shortly after the procedure, the pain has since significantly decreased. Currently, on most days, her pain level is around 1/10. She describes systemic improvements in pain and functionality after reassignment at work to tasks involving less physical strain. Initial episodes of pain were reported in the lower back, with occasional right-side radiation, but these complaints have drastically decreased following her recent intervention. There is notable improvement in her sleep quality, with fewer reservations regarding pain disruptions at night. Denies any fever or chills, weakness, foot drop, bladder or bowel dysfunction or saddle anesthesia. Past Procedures: 05/30/24: Bilateral therapeutic L3-L4-DR-L5 MBB- 80-90% ongoing pain relief 04/11/24: Bilateral Diagnostic L3-L4-DR L5 MBB- 100% pain relief for 4 days 12/21/23: Right L3-L4 TFESI-ongoing 85% pain relief PRIOR: Patient is a 33 years old female presents today with right sided low back pain. Patient reports work-related injury on 06/21/23 at [employer]. Worker's Comp case #[id number]. 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 Patient was evaluated at [facility] and was initially treated with muscle relaxant, oral steroids, Naproxen and Physical Therapy at [facility]. She had no improvement in pain and function with PT. She has tried to return to work with restrictions but given the nature of her work which involves heavy lifting, twisting, arching back and bending, she can return to work without restrictions. Pain affects her daily activities and functioning, mobility, sleep, work and social interactions. Lumbar spine was completed on 09/25/23, report is noted below. At this time, she has not reached maximum medical improvement and is interested to undergo therapeutic injection to alleviate pain and increase functioning with plans to return to workforce. Denies any fever, chills, abdominal or groin pain, weakness, foot drop, bladder or bowel dysfunction or saddle anesthesia. Oswestry Low Back Disability Score=18 (moderate disability) Location: Right sided lower back, occasionally radiates down right leg Duration: 1 year, worsening since 06/21/23 due work-related injury Characteristics of symptom or complaint: Aching, numbness, tightness, radiating, sore Aggravating or associated factors: Sitting, prolonged standing >walking, bending, twisting, arching back Relieving factors: Heating pad, TENS unit, cyclobenzaprine Treatment: PT at [facility], lumbar spine MRI [facility] Medical History No pertinent past medical history Surgical History No pertinent past surgical history Social History Alcohol intake: current Alcohol intake frequency: a few times a week Alcohol type: hard liquor and other Tobacco use type: Smokeless Tobacco Review of Systems Const Details: - Musculoskeletal: Reports lower back pain; no current right-side radicular pain post-intervention - Sleep: Reports improvement, occasional disturbances - General: Denies significant interference in daily activities All systems reviewed & are unremarkable except as noted in HPI and below Physical Exam Vital Signs: Last Vital Signs Pulse 88 06/27/24 13:33 BP 130/80 06/27/24 13:33 Pulse Ox 98 06/27/24 13:33 Oxygen Delivery Method Room Air 06/27/24 13:33 BMI result Body Mass Index 38.7 General: Appears afebrile. Alert and oriented. Mood and affect appropriate. Follows and participates in conversation appropriately. Respiratory effort is unlabored. No cough. Able to transition from sit to stand unassisted. Ambulates with bilaterally normal heel strike and toe off. General: Yes no CVA tenderness Back/Spine/Pelvis Other: Limited lumbar ROM with extension which reproduces minimal pain. Normal non-antalgic gait. Demonstrates 5/5 strength of quadriceps bilaterally as well as flexion/dorsiflexion of bilateral feet against resistance. 2+ pedal pulses bilaterally. Straight leg rise with dorsiflexion is negative bilaterally. +2 patellar and achilles reflexes bilaterally. Facet loading test positive bilaterally, left>right. Penny sign positive bilaterally, Renan?s, Pelvic compression and Stinchfield tests are positive on the left. No groin pain with I/E hip rotations. Valsalva maneuver is negative. Back: no CVA tenderness Cervical Spine: cervical ROM normal, cervical muscular tenderness and No Cervical spine tenderness Thoracic/Lumbar Spine: thoracic and lumbar spine normal to inspection, No Thoracic/lumbar spine scar(s), Lasegue's sign negative, straight leg raise negative bilaterally, pain with thoraco-lumbar ROM, No paraspinal muscle tenderness, No thoracic spinal tenderness and No lumbar spinal tenderness Sacroiliac joints: bilaterally nontender Assessment & Plan Assessment & Plan (1) Lumbosacral spondylosis: Code(s): M47.817 - Spondylosis without myelopathy or radiculopathy, lumbosacral region Category: Medical (2) Protrusion of lumbar intervertebral disc: Code(s): M51.26 - Other intervertebral disc displacement, lumbar region Category: Medical Plan Recent intervention approaches have been efficacious in managing the patient's chronic arthritic back pain stemming from a work-related incident last year. Significant relief following bilateral therapeutic medial branch blocks has been noted, with further plans to evaluate the need for radiofrequency ablation once back pain returns to baseline levels. Meanwhile, patient will continue with Tylenol, meloxicam and lidocaine patches, advising their usage given her current minimal pain levels. A follow-up can be arranged in two months. Plans are influenced by the pursuit of sustained functional improvements and pain relief. Patient was informed and verbally consented to the use of an ambient scribe for clinic note documentation during this visit. Patient Instructions: The patient and I discussed her persistent back pain from a previous work-related injury and the subsequent treatment regimen employed. I explained the successes and limitations associated with bilateral therapeutic medial branch nerve blocks, yielding 80-90% efficacy in pain relief, and the possibility of pursuing radiofrequency ablation should there be a necessity in subsequent months. We explored potential risks, benefits, and the pivotal role of treatment adherence. She was receptive to the discussed pain management approach. The patient committed to following outlined recommendations and will report any deviations or exacerbations in symptoms promptly. - Continue current work modifications to maintain reduced physical strain. - Use Tylenol, meloxicam and lidocaine patches as needed for any recurring pain. - Monitor pain levels and report significant changes. - Follow up in 2-3 months, or sooner if symptoms worsen. - Avoid heavy lifting and excessive physical exertion. - Consider radiofrequency ablation for prolonged relief during the next evaluation if necessary. Coding Level of Care Code Est Pt Level 3 (22690) Complex EM visit Add On G2211 Diagnoses Lumbosacral spondylosis M47.817 Protrusion of lumbar intervertebral disc M51.26
== END 2024-06-27 13:58 | disposition home or self-care (01) ==
LOC: HO.PMC 13:29
PROVIDERS: Visit Provider Nurse Practitioner Family
DX: M47.817 Spondylosis without myelopathy or radiculopathy, lumbosacral region (principal); M51.26 Other intervertebral disc displacement, lumbar region
CPT/HCPCS: 99213; G2211

== ENCOUNTER → 2024-06-27 13:28 | Outpatient (BNVA) | payer OTHER, SELFPAY | PROVIDERS: Visit Provider Nurse Practitioner Family | DX: M47.817 Spondylosis without myelopathy or radiculopathy, lumbosacral region (principal); M51.26 Other intervertebral disc displacement, lumbar region | CPT/HCPCS: 99212 ==

== ENCOUNTER → 2024-07-08 13:30 | Outpatient (BNVA) | payer OTHER, SELFPAY | PROVIDERS: Visit Provider Physician Assistant Medical | DX: M54.16 Radiculopathy, lumbar region (principal) | CPT/HCPCS: 99213 ==

== ENCOUNTER → 2024-08-07 14:15 | Outpatient (BNVA) | payer OTHER, SELFPAY | PROVIDERS: Visit Provider Physician Assistant Medical | DX: M51.27 Other intervertebral disc displacement, lumbosacral region (principal) | CPT/HCPCS: 99213 ==

== ENCOUNTER → 2024-09-10 14:38 | Outpatient (BNVA) | payer OTHER, SELFPAY | PROVIDERS: Visit Provider Physician Assistant Medical | DX: M51.27 Other intervertebral disc displacement, lumbosacral region (principal) | CPT/HCPCS: 99213 ==

== ENCOUNTER → 2024-10-10 14:20 | Outpatient (BNVA) | payer OTHER, SELFPAY | PROVIDERS: Visit Provider Physician Assistant Medical | DX: M47.817 Spondylosis without myelopathy or radiculopathy, lumbosacral region (principal); M51.17 Intervertebral disc disorders with radiculopathy, lumbosacral region | CPT/HCPCS: 99213 ==

== ENCOUNTER → 2024-10-31 14:15 | Outpatient (BNVA) | payer OTHER, SELFPAY | PROVIDERS: Visit Provider Physician Assistant Medical | DX: M51.17 Intervertebral disc disorders with radiculopathy, lumbosacral region (principal) | CPT/HCPCS: 99212; 99213 ==

== ENCOUNTER 2024-10-31 15:26 | Outpatient (AMB) | payer OTHER, SELFPAY ==
[2024-10-31 15:31] VITALS: BP 203/114; PULSE 108; O2SAT 100; BMI 38.2
--- NOTE | 2024-10-31 15:31 | A.OFFVIS_ITS ---
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 The pain initially responded to bilateral therapeutic L3-L4 and L4-L5 medial branch blocks administered in May, providing relief for approximately three months. However, the pain returned in August and has progressively worsened over the past few weeks. The pain is localized to the back without associated numbness or radiation. The patient reports that the pain is exacerbated by standing, leaning back or maintaining an upright posture. Previous interventions included steroid injections, which provided temporary relief but are not considered a long-term solution. The patient has been informed about radiofrequency ablation (RFA) as a potential treatment option, which involves lesioning of the nerves to provide lasting pain relief. The patient expressed concerns about undergoing procedures without adequate sedation and has a significant phobia of needles. We also reviewed Sprint PNS trial, which patient has declined due to nature of her work. Denies any recent cough, cold, infection, fever or any significant changes in medical history since last office visit. PRIOR: Patient presents today to assess response to Bilateral therapeutic L3-L4 DR L5 MBB on 05/30/[address] Colon. Although she experienced exacerbated pain shortly after the procedure, the pain has since significantly decreased. Currently, on most days, her pain level is around 1/10. She describes systemic improvements in pain and functionality after reassignment at work to tasks involving less physical strain. Initial episodes of pain were reported in the lower back, with occasional right-side radiation, but these complaints have drastically decreased following her recent intervention. There is notable improvement in her sleep quality, with fewer reservations regarding pain disruptions at night. Denies any fever or chills, weakness, foot drop, bladder or bowel dysfunction or saddle anesthesia. Past Procedures: 05/30/24: Bilateral therapeutic L3-L4-DR-L5 MBB- 80-90% ongoing pain relief 04/11/24: Bilateral Diagnostic L3-L4-DR L5 MBB- 100% pain relief for 4 days 12/21/23: Right L3-L4 TFESI-ongoing 85% pain relief PRIOR: Patient is a 33 years old female presents today with right sided low back pain. Patient reports work-related injury on 06/21/23 at [employer]. Worker's Comp case #[id number]. 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 Patient was evaluated at [facility] and was initially treated with muscle relaxant, oral steroids, Naproxen and Physical Therapy at [facility]. She had no improvement in pain and function with PT. She has tried to return to work with restrictions but given the nature of her work which involves heavy lifting, twisting, arching back and bending, she can return to work without restrictions. Pain affects her daily activities and functioning, mobility, sleep, work and social interactions. Lumbar spine was completed on 09/25/23, report is noted below. At this time, she has not reached maximum medical improvement and is interested to undergo therapeutic injection to alleviate pain and increase functioning with plans to return to workforce. Denies any fever, chills, abdominal or groin pain, weakness, foot drop, bladder or bowel dysfunction or saddle anesthesia. Oswestry Low Back Disability Score=18 (moderate disability) Location: Right sided lower back, occasionally radiates down right leg Duration: 1 year, worsening since 06/21/23 due work-related injury Characteristics of symptom or complaint: Aching, numbness, tightness, radiating, sore Aggravating or associated factors: Sitting, prolonged standing >walking, bending, twisting, arching back Relieving factors: Heating pad, TENS unit, cyclobenzaprine Treatment: PT at [facility], lumbar spine MRI [facility] Medical History No pertinent past medical history Surgical History No pertinent past surgical history Social History Alcohol intake: current Alcohol intake frequency: a few times a week Alcohol type: hard liquor and other Tobacco use type: Smokeless Tobacco Review of Systems Const Details: - Musculoskeletal: Reports axial back pain, denies numbness, tingling or r adiation All systems reviewed & are unremarkable except as noted in HPI and below Physical Exam Vital Signs: Last Vital Signs Pulse 108 H 10/31/24 15:31 BP 130/68 10/31/24 15:46 Pulse Ox 100 10/31/24 15:31 Oxygen Delivery Method Room Air 10/31/24 15:31 BMI result Body Mass Index 38.2 General: Appears afebrile. Alert and oriented. Mood and affect appropriate. Follows and participates in conversation appropriately. Respiratory effort is unlabored. No cough. Able to transition from sit to stand unassisted. Ambulates with bilaterally normal heel strike and toe off. General: Yes no CVA tenderness Back/Spine/Pelvis Other: Limited lumbar ROM with extension which reproduces moderate pain. Normal non- antalgic gait. Demonstrates 5/5 strength of quadriceps bilaterally as well as flexion/dorsiflexion of bilateral feet against resistance. 2+ pedal pulses bilaterally. Straight leg rise with dorsiflexion is negative bilaterally. +2 patellar and achilles reflexes bilaterally. Facet loading test positive bi laterally. Penny sign positive bilaterally, Renan?s, Pelvic compression and Stinchfield tests are positive on the left>right. No groin pain with I/E hip rotations. Valsalva maneuver is negative. Back: no CVA tenderness Cervical Spine: cervical ROM normal, cervical muscular tenderness and No Cervical spine tenderness Thoracic/Lumbar Spine: thoracic and lumbar spine normal to inspection, No Thoracic/lumbar spine scar(s), Lasegue's sign negative, straight leg raise negative bilaterally, pain with thoraco-lumbar ROM, No paraspinal muscle tenderness, No thoracic spinal tenderness and lumbar spinal tenderness at L3, at L4 and at L5 Sacroiliac joints: bilaterally tender to palpation (mild) Results Reviewed Results Reviewed: MR LUMBAR SPINE WITHOUT CONTRAST 09/25/23 CLINICAL INFORMATION: Lumbar radiculopathy COMPARISON: None available. TECHNIQUE: MRI of the lumbar spine was obtained using routine sequences without contrast. FINDINGS: The visualized lumbar vertebrae are intact with normal alignment. No focal bone lesion with abnormal signal can be seen. Evaluation of the intervertebral discs show: T12/L1: Intervertebral disc height is normal, with normal T2 signal. No focal disc herniation is seen. Bilateral T12/L1 neuroforamina are patent. Bilateral apophyseal joints are intact with normal alignment. L-1/L-2: Intervertebral disc height is normal, with normal T2 signal. No focal disc herniation is seen. Bilateral L1-L2 neuroforamina are patent. Bilateral apophyseal joints are intact with normal alignment. L2/L3: Intervertebral disc height is normal, with normal T2 signal. No focal disc herniation is seen. Bilateral L2-L3 neuroforamina are patent. Bilateral apophyseal joints are intact with normal alignment. L3/L4: Intervertebral disc height is normal, with mild loss of T2 signal. Mild asymmetric right posterior disc protrusion mildly effacing right lateral recess is seen. Bilateral L3-L4 neuroforamina are patent. Bilateral apophyseal joints are intact with normal alignment. L4/L5: Intervertebral disc height is normal, with mild loss of T2 signal. No focal disc herniation is seen. Bilateral L4-L5 neuroforamina are patent. Bilateral apophyseal joints are intact with normal alignment. L5/S1: Intervertebral disc height is mildly decreased, with normal T2 signal. No focal disc herniation is seen. Bilateral L5-S1 neuroforamina are patent. Bilateral apophyseal joints are intact with normal alignment. Conus medullaris is seen normally at L1 level. IMPRESSION: 1. Mild asymmetric right posterior disc protrusion at L3-L4 mildly effacing right lateral recess. 2. Mild lumbar disc desiccation at L3-L4 and L4-L5. XR LUMBOSACRAL SPINE WITH OBLIQUES 10/26/23 CLINICAL INFORMATION: Radiculopathy lumbar region. FINDINGS: Dextroscoliosis of the lumbar spine. IUD in the pelvis. Facet arthritis in the lower lumbar spine. Mild multilevel lumbar spondylosis with mild loss of disc space height at L5-S1. Degenerative changes in the bilateral sacroiliac joints, right greater than left. IMPRESSION: 1. Mild multilevel lumbar spondylosis with mild loss of disc space height at L5-S1. 2. Facet arthritis in the lower lumbar spine. Assessment & Plan Assessment & Plan (1) Lumbosacral spondylosis: Code(s): M47.817 - Spondylosis without myelopathy or radiculopathy, lumbosacral region Category: Medical (2) Sacroiliac joint pain: Code(s): M53.3 - Sacrococcygeal disorders, not elsewhere classified Category: Medical (3) Chronic low back pain without sciatica: Code(s): M54.50 - Low back pain, unspecified; G89.29 - Other chronic pain Category: Medical Plan Schedule Bilateral L3-L4 DR L5 Medial Branch RFA with sedation and fluoroscopy given positive results with previous diagnostic and therapeutic lumbar MBB injections, providing her complete axial low back pain relief for 4 days diagnostic and 3 months therapeutic relief. Expectations, risks and benefits were reviewed. Patient is aware she will be contacted to schedule this pr ocedure. We also reviewed therapeutic injections and neuromodulation with Sprint PNS trial. Patient is not interested in temporary lead placement given her nature of work and daily activities. Continue regular stretching exercises, TENS unit, adequate hydration, good posture, weight optimization and proper body mechanics. Continue meloxicam, cyclobenzaprine, Tylenol and heat therapy as needed. All questions were answered and the patient is in agreement of plan. Follow-up after RFA procedure and sooner as needed. Coding Level of Care Code Est Pt Level 4 (62613) Complex EM visit Add On G2211 Diagnoses Lumbosacral spondylosis M47.817 Sacroiliac joint pain M53.3 Chronic low back pain without sciatica M54.50; G89.29
[2024-10-31 15:46] VITALS: BP 130/68
== END 2024-10-31 15:46 | disposition home or self-care (01) ==
LOC: HO.PMC 15:27
PROVIDERS: Visit Provider Nurse Practitioner Family
DX: M47.817 Spondylosis without myelopathy or radiculopathy, lumbosacral region (principal); M53.3 Sacrococcygeal disorders, not elsewhere classified; M54.50 Low back pain, unspecified; G89.29 Other chronic pain
CPT/HCPCS: 99214; G2211

== ENCOUNTER → 2024-12-05 13:52 | Outpatient (BNVA) | payer OTHER, SELFPAY | PROVIDERS: Visit Provider Emergency Medicine | DX: M51.17 Intervertebral disc disorders with radiculopathy, lumbosacral region (principal) | CPT/HCPCS: 99213 ==

== ENCOUNTER 2024-12-20 08:11 | Day surgery (SDC) | payer OTHER, SELFPAY ==
--- OUTSIDE RECORDS SUMMARY | 2024-12-17 15:32 | XMS_ITS | Clinical Summary ---
Author Organization [facility] Address [facility] [employer] [facility] [address] [place] [address] Phone Care Team Providers Care Production Supervisor Name Role Phone Unknown, Unknown Primary Care Provider Elisabeth patricio Allergies Active Allergy Reactions Criticality Noted Date Comments Cefprozil 02/11/2022 Pt does not recall the reaction. Pt was told that she was allergic as a child. Pt reports taking amoxicillin as a child without any reaction. Medications clobetasol (TEMOVATE) 0.05 % ointment Apply topically 2 (two) times a day. To rash 45 g 1 0 Active valACYclovir (VALTREX) 1000 MG tablet Take 1 tablet (1,000 mg total) by mouth 2 (two) times a day. 10 tablet 4 3 Active FLUoxetine (PROZAC) 20 MG capsule take 1 capsule by mouth every day 90 capsule 3 4 Active Hospital, Clinic, or Other Facility Administered Medication Ordered Dose Route Frequency Start Date End Date Status levonorgestreL (MIRENA) 20 mcg/24 hours (7 yrs) 52 mg intrauterine device 1 each 1 each Utrn Every 6 years 03/17/2021 Active Active Problems Problem Noted Date Diagnosed Date Alcohol use 01/17/2023 History of herpes genitalis 02/09/2022 Assessment & Plan (02/09/2022 5:17 PM EST): The appearance of the 2 lesions at the introitus are consistent with an outbreak of HSV. She is quite concerned about this potential, I assured her that there should be no stigma attached to herpes if the test sent is indeed positive. Given how mild this 1 is, even if the test is positive I doubt she is going to have frequent recurrences. I recommend going ahead and treating with Valtrex at this time and if it is positive I would recommend episodic treatment. If positive she can certainly return for more discussion. Explained that there can be asymptomatic shedding from a person who has a history of oral herpes without there being an active outbreak Recurrent vaginitis 09/09/2021 Overview (09/09/2021): Onset is right before menses monthly since IUD inserted Is getting good results with use of some [employer] products (vaginal probiotic and other insert) Assessment & Plan (09/09/2021 2:50 PM EDT): No evidence today of BV or yeast on exam OK to continue using these products if helping her, though I do not know the ingredients Can RTO when sxs are more prominent for repeat eval Could remove IUD and select alternate contraceptive method Encounter for contraceptive management 1 Overview (03/17/2021): Mirena inserted per request Overweight 05/07/2019 Needle phobia 05/07/2019 Eczema 05/04/2018 Mild depression 05/04/2018 Immunizations Immunization Administration Dates Next Due COVID-19 (Pre-01/16) Pfizer Vaccine, mRNA, PF Tdap 05/07/2019 Family History Medical History Relation Comments No Known Problems Brother Crohn's disease Father Cancer Maternal Grandmother Diabetes mellitus Mother Drug use disorder Mother No Known Problems Sister 1 No Known Problems Sister 2 No Known Problems Sister 3 Relation Status Comments Brother Alive Father Alive Maternal Grandmother Mother (Age 48) drug overdose Sister 1 Alive Sister 2 Alive Sister 3 Alive Social History Tobacco Use Types Packs/Day Years Used Date Smoking Tobacco: Every Day Cigarettes 0.3 0.5 Started: 06/2020; Last attempted to quit: 12/2020 Smokeless Tobacco: Never Tobacco Cessation:Ready to Q uit: Not Asked; Counseling Given: Not Answered Comments:3-4 cigarettes daily, vaping Alcohol Use Standard Drinks/Week Comments Yes 2 (1 standard drink = 0.6 oz pure alcohol) 1-2 drinks, 2-3 x week, wine or trulys Child or Family Care Answer Date Record ed Do you have problems with on e of the following making it difficult for you to work, study, or receive health care? No 01/17/2023 Education Answer Date Recorded Are you interested in help w ith more adult education (for example, completing high school, GED, job training, learning the Latvian language, technical skills, or developing parenting skills)? No 01/17/2023 Are you concerned about learning? Not on file 01/17/2023 No 01/17/2023 Yes 01/17/2023 Food Answer Date Recorded Within the past 6 months we worried whether our food would run out before we got money to buy more. Never True 01/17/2023 Within the past 6 months the food we bought just didn't last and we didn't have enough money to get more. Never True Residential Stability Answer Date Recor ded What is your housing situation today? I have papomi casas 01/17/2023 How many times have you moved in the past 12 mon? One time 01/17/2023 Paying for Meds Answer Date Recorded Do you have trouble paying for medicines? No 01/17/2023 Paying Utility Bills Answer Date Record ed Do you have trouble paying your heating or elect ricity bill? No 01/17/2023 Transportation Answer Date Recorded Has the lack of transportati on kept you from medical appointments or from getting medications? No 01/17/2023 Unemployment Answer Date Recorded Are you currently unemployed or working on a part-time or temporary basis, and looking for work? No 01/17/2023 Digital Access Answer Date Recorded No 01/17/2023 Yes 01/17/2023 Do you have reliable internet access at home? Ye s 01/17/2023 Do you have a device (e.g., phone, tablet, computer) with a working camera? Yes 01/17/2023 Intimate Partner Violence Answer Date R ecorded Denied Basic Needs Not on file 01/17/2023 In the past 12 months have y ou been in a relationship with a person who hurts, threatens, or tries to control you? No 01/17/2023 Worried food would run out Not on file 01/17 In the past 12 months have y ou been in a relationship with a person who hurts, threatens, or tries to control you? No 01/17/2023 Comments No Sex and Gender Information Value Date Recorded Sex Assigned at Not on file Legal Sex Female 9:01 PM EDT Gender Identity Not on file Sexual Orientation Not on file Last Filed Vital Signs Vital Sign Reading Time Taken Comments Blood Pressure 144/84 01/17/2023 2:58 PM EDT Pulse 90 01/17/2023 2:58 PM EDT Temperature 36.9 C (98.4 F) 01/14/2022 3:11 PM EDT Respiratory Rate 16 01/17/2023 2:58 PM EDT Oxygen Saturation 99% 01/17/2023 2:58 PM EDT Inhaled Oxygen Concentration - - Weight 84.5 kg (186 lb 3.2 oz) 01/17/2023 2:58 P M EDT Height 160 cm (5' 2.99 ) 01/17/2023 2:58 PM EDT Body Mass Index 32.99 01/17/2023 2:58 PM EDT Plan of Treatment Health Maintenance Due Date Last Done Comments SMOKING Hx and SMOKELESS TOBACCO SCREENING 10/06/2003 HEPATITIS C SCREENING 2008 HIV ONE-TIME SCREENING (18-6 5 YEARS) 2008 PNEUMOCOCCAL VACCINES (0-49 years) (1 of 2 - PCV) 2009 PAP SMEAR 01/14/2024 01/13/2021, 05/02/2017, 05/02/2017 DEPRESSION SCREENING 03/08/2024 03/08/2023, 03/08/2023 INFLUENZA VACCINE (#1) 2024 COVID-19 VACCINE (3 - 2024-2 6 season) 2024 09/08/2020, 08/18/2020 IUD 03/17/2029 03/17/2021 Adult Td,Tdap Booster 05/07/2029 05/07/2019 HEPATITIS A VACCINES Aged Out No long er eligible based on patient's age to complete this topic HIB VACCINES Aged Out No longer eligi ble based on patient's age to complete this topic MENINGOCOCCAL VACCINES (ACWY) Aged Out No longer eligible based on patient's age to complete this topic MENINGOCOCCAL VACCINES (B) Aged Out N o longer eligible based on patient's age to complete this topic Medical Devices Implanted Type Area Die Repair Device Identifier Shelf Expiration Date Model / Serial / Lot Iud Implanted: (Quantity not on file) Intrauterine Device Procedures Procedure Name Priority Date/Time Associated Diagnosis Comments PAP TEST Routine 01/13/2021 12:00 AM EDT from Last 3 Months or Most Recently Relevant to Health Maintenance Results * Pap Smear (01/13/2021 12:00 AM EDT) 01/13/2021 01/14/2021 8:4 2 AM EDT Narrative SEE NARRATIVE - 01/21/2021 4:28 [place] [address] Musical Instrument Supervisor: Courtney Mahoney MD RIG[employer]ING [employer] MECH[employer]IC Cytology Report FINAL DIAGNOSIS A. PAP SMEAR (SUREPATH) CE: SPECIMEN ADEQUACY: Satisfactory for evaluation; transformation zone present. INTERPRETATION: NEGATIVE FOR INTRAEPITHELIAL LESION OR MALIGNANCY. Fungal organisms morphologically consistent with Jennifer species. Electronically Signed Out By: OSIRIS Sharp(ASCP) The Pap test is a screening test primarily for squamous cancers and precursors and has associated false-negative and false-positive results. New technologies such as liquid-based preparations may decrease but will not eliminate all false-negative results. Regular sampling and follow-up of unexplained clinical signs and symptoms are recommended to minimize false negative results. PROCEDURES/ADDENDA HPV Testing (Requested) Ordered Date: 01/14/2021 A. PAP SMEAR (SUREPATH) CE: Human Papilloma Virus Test Negative for high-risk human papillomavirus types 16, 18, 45 and the Other high risk probe set (Includes 31, 33, 35, 39, 51, 52, 56, 58, 59, 66, 68) by [employer] Onclarity HR-HPV analysis. Clinical correlation is advised. This HPV test was performed at [facility], [address] [place] [address]. This test has been FDA approved for SurePath cervical cytology specimens. The accuracy and precision of this test for all other specimen sources has been verified in the Cytopathology Laboratory of the [facility] and has not been cleared or approved by the U.S. Food and Drug Administration. Clinical correlation is advised. CLINICAL HISTORY Date of Last Menstrual Period: 12-25-2020 Other Clinical Conditions: Screening Pap SPECIMEN SOURCE A: PAP SMEAR (SUREPATH) CE Patient Name: RADHIKA RANDOLPH : 1990 (Age: 30) Sex: F Institution: [facility] Location: 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 CYTOLOGY ORDERABLES Final Resul t SEE NARRATIVE from Last 3 Months or Most Recently Relevant to Health Maintenance Insurance [address] [address] [employer] [address] [address] [employer] [address] [address] [address] [employer] [address] [place] [address] [place] [address] [employer] [address] [address] [employer] [address] [address] [employer] Member Subscriber Plan / Payer (Ef fective 2019-Present) Name:Radhika Randolph Relation to Subscriber:Self Name:Radhika Randolph Payer ID:[id number] (NAIC) Type:PPO Address: [place] [id number] [address] [employer] [address] [address] [employer] [facility] [employer] Care Teams Production Supervisor Relationship Specialty Start Date End Date Unknown, Unknown, PCP - General 06/19/23 Additional Source Comments The information contained in this document represents components of the legal health record. It is not the complete legal health record.[facility]
--- NOTE | 2024-12-18 11:40 | P.CONAN_ITS ---
Documented by User: Felisa Barney NP 12/18/24 11:40 HPI - Anesthesia Eval Consult details Narrative: 34 yr old female for bilateral L3-L4 - Dorsal Ramus L5 Medial Branch Radiofrequency AB [facility] Active Problems Active Problems: All Active Problems (Updated 10/31/24 @ 16:23 by JOAN Veras) Chronic low back pain without sciatica (Acute) Sacroiliac joint pain (Acute) Lumbosacral spondylosis (Acute) Muscle spasm of back (Acute) Lumbar back pain with radiculopathy affecting right lower extremity (Acute) Lumbar radiculopathy (Acute) Protrusion of lumbar intervertebral disc (Acute) Past Medical History Medical History No pertinent past medical history Surgical History Surgical History No pertinent past surgical history Social History Social History Alcohol intake: current Alcohol intake frequency: a few times a week Alcohol type: hard liquor and other Tobacco use type: Smokeless Tobacco Advance Directives: No Advance Directives Information Provided: Yes Meds Allergies Allergy/AdvReac Type Severity Reaction Status Date / Time No Known Allergies Allergy Verified 12/20/24 08:41 Documented by User: Kellie Pittman MD 12/20/24 09:13 [facility] Past Medical History Medical History No pertinent past medical history Surgical History Surgical History No pertinent past surgical history History of Problems with Anesthesia: No Social History Social History Alcohol intake: current Alcohol intake frequency: a few times a week Alcohol type: hard liquor and other Tobacco use type: Smokeless Tobacco Advance Directives: No Advance Directives Information Provided: Yes Meds Allergies Allergy/AdvReac Type Severity Reaction Status Date / Time No Known Allergies Allergy Verified 12/20/24 08:41 Exam Airway Mallampati Class: II TM Dist: >3cm Neck ROM: Full Loose/Missing/Broken Teeth: No Heart: RRR Lungs: CTA Assessment and Plan Assessment Anesthesia Assessment: Anesthesia Plan Discussed and Chart Reviewed Final Anesthetic Review History of Problems with Anesthesia: No NPO: Yes ASA Class: II Final Preanesthetic Review: Meds/Allgs Chart Reviewed, Consent Obtained/Reviewed and Anes Risks/Benef Reviewed Patient Risk: Low Procedure Risk: Low Anesthetic Plan Anesthetic Plan: MAC: Disposition: Standard PACU
--- NOTE | ~2024-12-20 | FL_ITS ---
EXAMINATION: FL GUIDANCE ONLY HISTORY: BILATERAL L3 L4 DR L5 RFA COMPARISON: None available. TECHNIQUE: Fluoroscopy time: 1 minute, 41 seconds. Cumulative Dose: 13.0 mGy. DAP: 365.99 uGym2 Images: 3. FINDINGS: Fluoroscopic spot films of the lumbar spine demonstrate needles in the regions of the right L3-4, L4-5, and L4-5 facet joints. FL/FL guidance in OR IMPRESSION: Fluoroscopy during procedure. Please see procedure report for additional information. Electronically signed by: Kirt Ortega MD 12/20/2024 10:49 AM EDT
[2024-12-20 08:46] VITALS: BMI 38.5
[2024-12-20 08:57] VITALS: BP 167/103; PULSE 89; RESP 16; TEMP 36.7; O2SAT 98
[2024-12-20 08:57] LABS: UPreg QC Valid YES
--- NOTE | 2024-12-20 09:08 | MHC.SHP ---
Pre-Procedural Eval Section A - 24 Hr Update-Section A only Date of Service: 12/20/24 The patient is an INPATIENT: No Changes since office visit: Yes Patient answered all questions The patient has been examined within 24 hours of the surgical procedure. 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,pain Details of Present Illness: As above Relevant Family History (Specify if Yes): No Relevant Social History: None Present Medications: see Short Stay Collaborative assessment Medical History: No relevant PMH History of Previous Operations: No relevant previous surgery Allergies: Allergies Allergy/AdvReac Type Severity Reaction Status Date / Time No Known Allergies Allergy Verified 12/20/24 08:41 Review of Systems Sugical H&P ROS: Negative: Cardiovascular, Respiratory, Neurological, Psychiatric, Hem-Onc, Allergic/Immunologic, Gastrointestinal, Genitourinary, Integumentary, Endocrine and Eyes/Ears/Nose/Throat and Yes, Specify: Constitution (Obesity) and Musculoskeletal (Spondylosis lumbar) Exam Surgical H&P Exam: Normal: HEENT, Normal: Heart, Normal: Lungs, Normal: Extremities, Normal: Skin and Normal: Neurological and Significant Findings: Abdomen (Enlarged due to fat) Plan Diagnosis/Plan: Unchanged I have reviewed the history and physical and performed a pertinent physical examination on my patient. No changes have occurred unless specified. Time Spent With Patient Time: Total time managing care of this patient today _5___ minutes.
[2024-12-20] MEDS: Lactated Ringers 1,000 ML 100 ML IVCONT (09:11)
--- NOTE | 2024-12-20 10:17 | P.BOP_ITS ---
Brief Operative Note Date of Service: 12/20/24 Pre-op diagnosis: Spondylosis lumbar without myelopathy or radiculopathy Post-op diagnosis: same Procedure: Radiofrequency ablation of L3, L4, dorsal ramus L5 medial branches Surgeon: Ameya Price MD Anesthesia: MAC Was an Statistical Reporting Analyst used for this Procedure?: No Estimated blood loss (mL): 2 Condition: stable Disposition: PACU
--- NOTE | 2024-12-20 10:19 | W.PM.OPN ---
Operative Note Operative Note Date of Service: 12/20/24 Narrative: Radiofrequency ablation bilateral L3- L4- DRL5 medial branches. Informed consent was explained to the patient. All questions were explained and answered.? The patient was taken inside of the operating room where she was positioned prone on the operating table.? Time-out was performed delineating patient's name and date of , correct site, side, the nature of the procedure, patient's allergy..? All operating room staff was participating in OR time-out procedure.? [place] [employer] monitors were applied.? Patient was minimally sedated and I was able to maintain the verbal contact with the patient throughout the procedure. Her lower back was prepped with ChloraPrep and draped with sterile towels.? C-arm was brought over the operating field and sq picture of L4-5 vertebra as and S1 vertebra were delineated on the screen. Severe scoliosis and rotational spondyloarthritis and scoliosis were noted on the screen. Extreme positioned of the C-arms were required to delineate proper targets. Points of interest were delineated as connection of superior articular process of L4 and L5 vertebra bilaterally with corresponding transverse processes as well as connection of the sacral alae bilaterally with superior articular process of S1.? The projection of the point of interest to the skin were injected with the small amount of local anesthetic lidocaine 2% 1-1.5 cc.? And after that 18 gauge 100 mm radiofrequency cannulas were driven to the point of interest in tunnel vision fashion under oblique view After needles gently contacted the bone at the point of interests the stylets were removed from the needles and electrodes were inserted into the needles.? Electrodes were connected to the radiofrequency machine and testing was performed for the patient's motor function.? There were no pathological motor response indicating stimulation of somatic nerves.? After that electrodes were removed and each needle was injected with small amount of mixture of lidocaine 2% and ropivacaine 0.5% one-to-one 1-1.5 cc mixed with trace amount of Kenalog.? Upon completion of the injections the electrodes were reinserted and energy of 89 degree centigrade for 90 seconds was applied to each needle 1st on the right side and then on the leftt.? Upon completion of the energy application the needles were rotated 180? and energy applied with the same temperature and with the same time.?Upon completion of the injections needles were removed and sterile dressings were applied patient was taken outside of the operating room to recovery room.
[2024-12-20 10:22] VITALS: BP 148/90; PULSE 75; RESP 15; TEMP 36.8; O2SAT 98
[2024-12-20 10:37] VITALS: BP 147/87; PULSE 76; RESP 18; TEMP 36.6; O2SAT 97
[2024-12-20 10:52] VITALS: BP 138/89; PULSE 76; RESP 18; TEMP 36.7; O2SAT 98
== END 2024-12-20 12:48 | disposition home or self-care (01) ==
PROVIDERS: Nurse Practitioner; Visit Provider Anesthesiology
PROC: (CPT 64635; principal; 2024-12-20 09:50)
DX: M47.817 Spondylosis without myelopathy or radiculopathy, lumbosacral region (principal); M53.3 Sacrococcygeal disorders, not elsewhere classified; G89.29 Other chronic pain; M54.50 Low back pain, unspecified; M41.9 Scoliosis, unspecified; F17.220 Nicotine dependence, chewing tobacco, uncomplicated
CPT/HCPCS: 64635; 64636 ×2; 81025; J2003; J2250; J2704; J2795; J3010; J3301

== ENCOUNTER → 2024-12-20 08:11 | Outpatient (BNV) | payer OTHER, SELFPAY | PROVIDERS: Visit Provider Anesthesiology | DX: M47.816 Spondylosis without myelopathy or radiculopathy, lumbar region (principal) | CPT/HCPCS: 64635; 64636 ==

== ENCOUNTER 2024-12-25 13:18 | Outpatient (AMB) | payer OTHER, SELFPAY ==
[2024-12-25 13:21] VITALS: BP 128/82; PULSE 79; TEMP 36.3; O2SAT 99; BMI 38.4
--- NOTE | 2024-12-25 13:21 | A.OFFPC_ITS ---
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 In review of the notes, patient follows with pain management Center [facility] and recently underwent procedure 12/20/2024. Presenting for a routine wellness visit and management of chronic conditions. The patient experienced a work-related injury last year resulting in a protruding disc. She has undergone physical therapy, three rounds of cortisone injections, and a recent radiofrequency ablation (RFA) procedure. The patient reports improvement post-procedure but is unsure if residual pain is from the procedure or the condition itself. The patient uses tobacco daily, primarily through vaping, and has recently resumed smoking due to stress. She expresses a willingness to quit but has not yet attempted to do so. The patient was previously on antidepressants but weaned herself off after her previous doctor left the practice. She reports feeling well without the medication and does not currently seek counseling, though she acknowledges potential benefits due to past trauma. [facility] Medical History Elbow fracture, left No pertinent past medical history Surgical History H/O radiofrequency ablation (RFA) of nerve of lumbar spine (12/20/24) Social History Household Members: Significant Other Housing: Apartment Are you a primary outdoor emergency care technician to a significant other at home: No Do you presently have visiting nurse or other home services: No Alcohol intake: current Alcohol intake frequency: a few times a week Alcohol type: hard liquor and other Patient Tobacco Use Status: Current everyday Tobacco user Tobacco use type: Smokeless Tobacco Cigarettes Per Day: 4 e-Cigarette/Vaping Use: Currently Using service: No Current occupational status: employed Current occupation: [employer] Cognitive needs: No Hearing needs: No Vision needs: No Female Reproductive History Menstrual control method: progestin IUCD Questionnaire PHQ-9 Over the last 2 weeks, how often have you been bothered by any of the following problems? 1. Little interest or pleasure in doing things: several days 2. Feeling down, depressed, or hopeless: several days 3. Trouble falling or staying asleep, or sleeping too much: several days 4. Feeling tired or having little energy: several days 5. Poor appetite or overeating: several days 6. Feeling bad about yourself - or that you are a failure or have let yourself or your family down: not at all 7. Trouble concentrating on things, such as reading the newspaper or watching television: several days 8. Moving or speaking so slowly that other people could have noticed. Or the opposite - being so fidgety or restless that you have been moving around a lot more than usual: not at all 9. Thoughts that you would be better off or of hurting yourself in some way: not at all Total score: 6 Depression Screening Interpretation: Positive Depression Screening Follow-up: Existing condition and Declines treatment Depression Screening Done: Yes 03253 - PHQ-9 Billing: Yes Source: Developed by Drs. Kirt Rivera, Radhika Lott, Abdon Thomas and colleagues, with an educational shane from [employer]. Thrive Questionnaire Date Thrive assessed: 12/25/24 I am a: Patient What is your living situation today?: I have a steady place to live Within the past 12 months, did the food you bought not last and you didn't have the money to get more?: Never true Within the past 12 months, did you worry whether your food would run out before you got money to buy more?: Never true Do you have trouble paying for medicines?: No Do you have trouble getting transportation to medical appointments?: No Do you have trouble paying your heating and electricity bill?: No Do you have trouble taking care of your child, family member or friend?: No Do you have trouble with day-to-day activities such as bathing, preparing meals, shopping, managing finances, etc.?: No Are you currently unemployed and looking for a job?: No Are you interested in more education?: I choose not to answer this question Please select the resources that you would like help with: None Currently or been in a relationship where the following occur: No concerns reported THRIVE Score: 0 AUDIT C Alcohol Use Questionnaire (AUDIT-C) 1. How often do you have a drink containing alcohol?: 2-4 times a month 2. How many drinks containing alcohol do you have on a typical day when you are drinking?: 3 or 4 3. How often do you have six or more drinks on one occasion?: Less than monthly Total Score: 4 Score Reviewed/Action Taken: Yes SPENSER-7 AMB Questionnaire SPENSER-7 Date SPENSER - 7 assessed: 12/25/24 Feeling nervous, anxious, or on edge: 1 = Several days Not being able to stop or control worryin = Several days Worrying too much about different things: 1 = Several days Trouble relaxin = Several days Being so restless that it is hard to sit still: 1 = Several days Becoming easily annoyed or irritable: 1 = Several days Feeling afraid as if something awful might happen: 1 = Several days Total SPENSER-7 score (0-4 normal; 5-9 mild; 10-14 moderate; 15-21 severe): 7 Source: Developed by Drs. Kirt Rivera, Radhika Lott, Abdon Thomas and colleagues, with an educational shane from [employer]. SPENSER-7 Assessment Billing SPENSER-7 Assessment Tool: SPENSER-7 Assessment 44068 Review of Systems Const Denies body aches, Denies chills, Denies fever(s), Denies headache(s) and Denies poor appetite Eyes Reports no additional complaints ENT Denies dysphagia, Denies dizziness, Denies headache(s) and Denies odynophagia Card Denies chest pain, Denies syncope, Denies edema, Denies irregular heart rhythm, Denies lightheadedness and Denies dyspnea Resp Denies cough and Denies dyspnea GI Denies abdominal pain, Denies constipation, Denies dysphagia, Denies diarrhea, Denies nausea, Denies odynophagia and Denies vomiting Reports no additional complaints Musc Reports no additional complaints and Denies abnormal gait Skin/Breast Reports system reviewed and no additional complaints, except as documented Neuro Denies abnormal gait, Denies dizziness, Denies syncope and Denies headache(s) Psych Reports no additional complaints Physical exam (Primary Care) Vital Signs: Last Vital Signs Temp 97.3 F 12/25/24 13:21 Pulse 79 12/25/24 13:21 BP 128/82 12/25/24 13:21 Pulse Ox 99 12/25/24 13:21 Oxygen Delivery Method Room Air 12/25/24 13:21 BMI result Body Mass Index 38.4 Tobacco/Smoking Status: Tobacco use Status Patient Tobacco Use Status Current everyday Tobacco 12/20/24 10:16 Tobacco use type Smokeless Tobacco 04/02/24 14:24 Depression Screening Interpretation: Positive Depression Screening Follow-up: Existing condition and Declines treatment Thrive Assessment: Date of Thrive Assessment Date Thrive assessed 12/25/24 12/25/24 09:06 Currently or been in a relationship where the following occur: No concerns reported Const General: cooperative, healthy appearing, comfortable and no acute distress Orientation/consciousness: patient oriented x3 HENMT Head: Yes normocephalic Ears: hearing grossly normal bilaterally General nose exam: Normal external nose present Face and sinus: Yes normal facial exam and Yes sinuses nontender Mouth: Normal oral and palatal mucosa present and tongue normal Throat: Yes posterior oropharynx normal Eyes General: appearance normal, both eyes and all related structures Conjunctivae: conjunctivae normal Pupils: Equal, round and reactive pupils present EOM: EOMs intact bilaterally and No Nystagmus present Neck Neck: Yes full ROM and Yes no lymphadenopathy Chest Chest palpation & inspection: normal inspection of the chest Resp Effort & Inspection: normal respiratory effort Auscultation: clear to auscultation bilaterally, no crackles, no rales, no rhonchi and no wheezes Cardio Rate: regular rate Rhythm: regular rhythm Peripheral pulses: radial pulses present and dorsalis pedis present GI Inspection: Yes normal to inspection and No Abdominal wall edema Palpation (GI): Soft to palpation, not firm and nontender Auscultation: normal bowel sounds Rectal Exam - Female: deferred General: Yes no CVA tenderness Back/Spine/Pelvis Back: no CVA tenderness Skin General skin exam: no rashes or lesions noted Neuro General: patient oriented x3 Cranial nerves: Yes Equal, round and reactive pupils present, Yes Midline tongue present, Yes Ability to bilaterally elevate shoulders present and No Nystagmus present Gait exam (Neuro): Normal gait present Extrem General: Yes normal to inspection, Yes full ROM and No edema Psych Speech and movement: Normal speech and movement present Affect: normal affect Attitude: cooperative Insight: Good insight present (Psych) Judgement: Good judgement present (Psych) Coding Level of Care Code Est Pt Prev Care 18-39y(14792) Diagnoses Annual physical exam Z00.00 Tobacco use Z72.0 Depression F32.A Protrusion of lumbar intervertebral disc M51.26 Constipation K59.00 Anxiety about treatment R45.89 Additional Codes SPENSER-7 Assessment Billing - SPENSER-7 Assessment Tool: SPENSER-7 Assessment 74659 ([id number]) PHQ-9 - 50539 - PHQ-9 Billing: Yes ([id number]) Assessment & Plan Assessment & Plan (1) Annual physical exam: Code(s): Z00.00 - Encounter for general adult medical examination without abnormal findings Category: Medical Plan: Patient is up-to-date on all recommended routine screenings vaccinations for her age. I did order for updated blood work to be reviewed with the next visit. Healthy diet and regular exercise is encouraged. Plan to follow up yearly or sooner as needed or pending blood work evaluation. (2) Tobacco use: Code(s): Z72.0 - Tobacco use Category: Social Hx Plan: The patient uses tobacco daily, primarily through vaping, and has resumed smoking due to stress. A discussion was held regarding the health risks associated with tobacco use, and the patient expressed a willingness to quit. Recommendations were made to reduce tobacco use, particularly vaping, to improve lung health. Declined medication management at this time. (3) Depression: Code(s): F32.A - Depression, unspecified Category: Medical Plan: The patient was previously on antidepressants but weaned herself off after her previous doctor left the practice. She reports feeling well without the medication and does not currently seek counseling, though she acknowledges potential benefits due to past trauma. (4) Protrusion of lumbar intervertebral disc: Code(s): M51.26 - Other intervertebral disc displacement, lumbar region Category: Medical Plan: The patient has been managing a protruding intervertebral disc resulting from a work-related injury last year. She has undergone physical therapy, cortisone injections, and a recent radiofrequency ablation (RFA) procedure. Follow-up with the Pain Management Center is scheduled for the end of the month to assess the effectiveness of the RFA. (5) Constipation: Code(s): K59.00 - Constipation, unspecified Category: Medical Plan: Discussed low FODMAP diet and fiber supplement. (6) Anxiety about treatment: Code(s): R45.89 - Other symptoms and signs involving emotional state Category: Medical Plan: Patient experiences anxiety regarding blood draws in his requesting a single dose of lorazepam to be used prior to venipuncture. Plan This note was constructed using voice recognition software. While every effort has been made to ensure accuracy and school based therapist, still areas may have been included sometimes these areas may affect the content or meeting of the given symptoms. Total time spent caring for the patient today was 30 minutes. This includes time spent before the visit reviewing the chart, time spent during the visit, and time spent after the visit and documentation. Patient was informed and verbally consented to the use of an ambient scribe for clinic note documentation during this visit. Orders: Orders Comprehensive Met. Panel Today Z13.1 - Encounter for screening for diabetes mellitus TSH reflex Free T4 Today Z13.29 - Encounter for screening for other suspected endocrine disorder Vitamin D 25-OH Total Today Z13.21 - Encounter for screening for nutritional disorder Complete Blood Count Auto Diff Today Z13.0 - Encounter for screening for diseases of the blood and blood-forming organs and certain disorders involving the immune mechanism Lipid Panel Today E78.00 - Pure hypercholesterolemia, unspecified, Z13.220 - Encounter for screening for lipoid disorders Vitamin B12 and Folate Today Z13.21 - Encounter for screening for nutritional disorder Referrals VISCOSE DEPARTMENT WORKER Referral Z12.4 - Encounter for screening for malignant neoplasm of cervix Medications: New lorazepam take 1 hour prior to blood draw 0.5 mg PO DAILY PRN 1 tab 0RF anxiety
--- OUTSIDE RECORDS SUMMARY | 2024-12-25 14:30 | XMS_ITS | Clinical Summary ---
Author Organization [facility] Address [facility] [employer] [facility] [address] [place] [phone] Phone Care Team Providers Care Electrotype Servicer Name Role Phone Unknown, Unknown Primary Care [...] high school, GED, job training, learning the Tu[place] language, technical skills, or developing parenting skills)? [...] this topic Medical Devices Implanted Type Area Cane Packer Device Identifier Shelf Expiration Date Model / [...] SEE NARRATIVE - 01/21/2021 4:28 [place] [address] Sterilization Specialist: Courtney Mahoney MD PATIENT SAFETY OFFICER Cytology Report FINAL DIAGNOSIS A. PAP SMEAR [...] 52, 56, 58, 59, 66, 68) by [employer] Onclarity HR-HPV analysis. Clinical correlation is advised. This HPV test was performed at [facility], [address] [place] [address]. This test has been FDA approved for SurePath cervical cytology specimens. The accuracy and precision of this test for all other specimen sources has been verified in the Cytopathology Laboratory of the [facility] and has not been cleared or approved by the U.S. Food and Drug Administration. Clinical correlation is advised. CLINICAL HISTORY Date of Last Menstrual Period: 12-25-2020 Other Clinical Conditions: Screening Pap SPECIMEN SOURCE A: PAP SMEAR (SUREPATH) CE Patient Name: RADHIKA RANDOLPH : 1990 (Age: 30) Sex: F Institution: [facility] Location: [facility] Date of Collection: 01/13/2021 Date of Reported: 01/21/2021 16:28 Results to: Lani Stout MSN, BSN Lani Stout [employer] CYTOLOGY ORDERABLES Final Resul t SEE NARRATIVE from Last 3 Months or Most Recently Relevant to Health Maintenance Insurance [address] [address] [employer] [address] [address] [employer] [address] [address] [address] [employer] [address] [place] [address] [employer] [address] [address] [employer] [address] [address] [employer] Member Subscriber Plan / Payer (Ef fective 2019-Present) Name:Radhika Randolph Relation to Subscriber:Self Name:Radhika Randolph Payer ID:[id number] (NAIC) Type:PPO Address: [place] [id number] [address] [employer] [address] [address] [employer] [facility] [employer] Care Teams Electrotype Servicer Relationship Specialty Start Date End Date Unknown, Unknown, PCP - General 06/19/23 Additional Source Comments The information contained in this document represents components of the legal health record. It is not the complete legal health record.[facility]
== END 2024-12-25 14:06 | disposition home or self-care (01) ==
LOC: HO.HMCH 13:19
DX: Z00.00 Encounter for general adult medical examination without abnormal findings (principal); Z72.0 Tobacco use; F32.A Depression, unspecified; M51.26 Other intervertebral disc displacement, lumbar region; K59.00 Constipation, unspecified; R45.89 Other symptoms and signs involving emotional state

== ENCOUNTER → 2024-12-25 13:18 | Outpatient (BNVA) | payer BC, OTHER, SELFPAY | DX: Z00.00 Encounter for general adult medical examination without abnormal findings (principal); M51.26 Other intervertebral disc displacement, lumbar region; K59.00 Constipation, unspecified; R45.89 Other symptoms and signs involving emotional state; F32.A Depression, unspecified; Z72.0 Tobacco use | CPT/HCPCS: 96127 ==

== ENCOUNTER → 2025-01-07 13:55 | Outpatient (BNVA) | payer OTHER, SELFPAY | PROVIDERS: Visit Provider Registered Nurse | DX: M51.17 Intervertebral disc disorders with radiculopathy, lumbosacral region (principal) | CPT/HCPCS: 99214 ==

== ENCOUNTER 2025-01-27 10:48 | Outpatient (AMB) | payer OTHER, SELFPAY ==
--- NOTE | 2025-01-27 10:53 | MHC.OFFVIS ---
Vital Signs 01/27/25 10:56 Height 5 ft 2.5 in Weight 212 lb BMI 38.2 BP 195/106 H Blood Pressure Location Rt brachial Position Sitting Pulse 66 Pulse Source Pulse Oximeter Pulse Oximetry (%) 98 Oxygen Delivery Method Room Air Comment Patient was rushing today along with increased anxiety Intake Visit Reasons: S/p B/l L3-L4-DRL5 MB RFA 12/20/24 Intake Note: Pain today 07/04 News Producer Required: No Accompanied by: Self / Same As Patient Allergies No Known Allergies Allergy (Verified 01/27/25 11:14) HPI Comments Details: The patient is a 34-year-old female presenting with chronic lower back pain. She underwent a radiofrequency ablation (RFA) on December 20, targeting the lumbar medial branches at L3, L4, and L5 bilaterally. The procedure provided significant relief, with pain reduction ranging from 70% to complete relief on some days. The patient reports persistent pain localized to the lower spine, exacerbated by bending forward and backward. She experiences soreness primarily in the mornings, with some days being pain-free. The pain does not radiate to the legs, and she has lumbar arthritis and mild disc protrusion at L3-L4 with disc desiccation at L3-L4 and L4-L5. Previous MRI findings indicated a very small right-sided disc protrusion and disc desiccation, consistent with arthritis. The patient is not considered a surgical candidate and prefers to avoid surgery if possible. She is interested in starting physical therapy to strengthen her core and improve her range of motion. Denies any recent cough, cold, infection, fever, chest pain or tightness, headache or any significant changes in medical history since last office visit. Past Procedures: 12/20/24: Bilateral L3-L4-DR L5 Medial Branch RFA-70-100% ongoing pain relief 05/30/24: Bilateral therapeutic L3-L4-DR-L5 MBB- 80-90% ongoing pain relief 04/11/24: Bilateral Diagnostic L3-L4-DR L5 MBB- 100% pain relief for 4 days 12/21/23: Right L3-L4 TFESI-ongoing 85% pain relief PRIOR: Patient is a 33 years old female presents today with right sided low back pain. Patient reports work-related injury on 06/21/23 at [employer]. Worker's Comp case #[id number]. 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 Patient was evaluated at [facility] and was initially treated with muscle relaxant, oral steroids, Naproxen and Physical Therapy at [facility]. She had no improvement in pain and function with PT. She has tried to return to work with restrictions but given the nature of her work which involves heavy lifting, twisting, arching back and bending, she can return to work without restrictions. Pain affects her daily activities and functioning, mobility, sleep, work and social interactions. Lumbar spine was completed on 09/25/23, report is noted below. At this time, she has not reached maximum medical improvement and is interested to undergo therapeutic injection to alleviate pain and increase functioning with plans to return to workforce. Denies any fever, chills, abdominal or groin pain, weakness, foot drop, bladder or bowel dysfunction or saddle anesthesia. Oswestry Low Back Disability Score=18 (moderate disability) Location: Right sided lower back, occasionally radiates down right leg Duration: 1 year, worsening since 06/21/23 due work-related injury Characteristics of symptom or complaint: Aching, numbness, tightness, radiating, sore Aggravating or associated factors: Sitting, prolonged standing >walking, bending, twisting, arching back Relieving factors: Heating pad, TENS unit, cyclobenzaprine Treatment: PT at [facility], lumbar spine MRI [facility] Medical History Elbow fracture, left No pertinent past medical history Surgical History H/O radiofrequency ablation (RFA) of nerve of lumbar spine (12/20/24) Social History Household Members: Significant Other Housing: Apartment Are you a primary respite care provider to a significant other at home: No Do you presently have visiting nurse or other home services: No Alcohol intake: current Alcohol intake frequency: a few times a week Alcohol type: hard liquor and other Patient Tobacco Use Status: Current everyday Tobacco user Tobacco use type: Smokeless Tobacco Cigarettes Per Day: 4 e-Cigarette/Vaping Use: Currently Using service: No Current occupational status: employed Current occupation: [employer] Cognitive needs: No Hearing needs: No Vision needs: No Review of Systems Const Details: - Musculoskeletal: Reports soreness in lower spine, exacerbated by bending; denies radiation to legs All systems reviewed & are unremarkable except as noted in HPI and below Physical Exam Vital Signs: Last Vital Signs Pulse 66 01/27/25 10:56 BP 195/106 H 01/27/25 10:56 Pulse Ox 98 01/27/25 10:56 Oxygen Delivery Method Room Air 01/27/25 10:56 BMI result Body Mass Index 38.2 General: Appears afebrile. Alert and oriented. Mood and affect appropriate. Follows and participates in conversation appropriately. Respiratory effort is unlabored. No cough. Able to transition from sit to stand unassisted. Ambulates with bilaterally normal heel strike and toe off. General: Yes no CVA tenderness Back/Spine/Pelvis Back: no CVA tenderness Cervical Spine: cervical ROM normal, cervical muscular tenderness and No Cervical spine tenderness Thoracic/Lumbar Spine: thoracic and lumbar spine normal to inspection, No Thoracic/lumbar spine scar(s), Lasegue's sign negative, straight leg raise negative bilaterally, pain with thoraco-lumbar ROM (mild), No paraspinal muscle tenderness, No thoracic spinal tenderness and lumbar spinal tenderness (L5-S1) Sacroiliac joints: bilaterally (Mild TTP, +Renan's on the left) tender to palpation (mild) Results Reviewed Results Reviewed: MR LUMBAR SPINE WITHOUT CONTRAST 09/25/23 CLINICAL INFORMATION: Lumbar radiculopathy COMPARISON: None available. TECHNIQUE: MRI of the lumbar spine was obtained using routine sequences without contrast. FINDINGS: The visualized lumbar vertebrae are intact with normal alignment. No focal bone lesion with abnormal signal can be seen. Evaluation of the intervertebral discs show: T12/L1: Intervertebral disc height is normal, with normal T2 signal. No focal disc herniation is seen. Bilateral T12/L1 neuroforamina are patent. Bilateral apophyseal joints are intact with normal alignment. L-1/L-2: Intervertebral disc height is normal, with normal T2 signal. No focal disc herniation is seen. Bilateral L1-L2 neuroforamina are patent. Bilateral apophyseal joints are intact with normal alignment. L2/L3: Intervertebral disc height is normal, with normal T2 signal. No focal disc herniation is seen. Bilateral L2-L3 neuroforamina are patent. Bilateral apophyseal joints are intact with normal alignment. L3/L4: Intervertebral disc height is normal, with mild loss of T2 signal. Mild asymmetric right posterior disc protrusion mildly effacing right lateral recess is seen. Bilateral L3-L4 neuroforamina are patent. Bilateral apophyseal joints are intact with normal alignment. L4/L5: Intervertebral disc height is normal, with mild loss of T2 signal. No focal disc herniation is seen. Bilateral L4-L5 neuroforamina are patent. Bilateral apophyseal joints are intact with normal alignment. L5/S1: Intervertebral disc height is mildly decreased, with normal T2 signal. No focal disc herniation is seen. Bilateral L5-S1 neuroforamina are patent. Bilateral apophyseal joints are intact with normal alignment. Conus medullaris is seen normally at L1 level. IMPRESSION: 1. Mild asymmetric right posterior disc protrusion at L3-L4 mildly effacing right lateral recess. 2. Mild lumbar disc desiccation at L3-L4 and L4-L5. XR LUMBOSACRAL SPINE WITH OBLIQUES 10/26/23 CLINICAL INFORMATION: Radiculopathy lumbar region. FINDINGS: Dextroscoliosis of the lumbar spine. IUD in the pelvis. Facet arthritis in the lower lumbar spine. Mild multilevel lumbar spondylosis with mild loss of disc space height at L5-S1. Degenerative changes in the bilateral sacroiliac joints, right greater than left. IMPRESSION: 1. Mild multilevel lumbar spondylosis with mild loss of disc space height at L5-S1. 2. Facet arthritis in the lower lumbar spine. Assessment & Plan Assessment & Plan (1) Muscle spasm of back: Code(s): M62.830 - Muscle spasm of back Category: Medical (2) Lumbosacral spondylosis: Code(s): M47.817 - Spondylosis without myelopathy or radiculopathy, lumbosacral region Category: Medical (3) Sacroiliac joint pain: Code(s): M53.3 - Sacrococcygeal disorders, not elsewhere classified Category: Medical (4) Chronic low back pain without sciatica: Code(s): M54.50 - Low back pain, unspecified; G89.29 - Other chronic pain Category: Medical Plan The patient will begin physical therapy to strengthen her core and improve range of motion, focusing on exercises that do not exacerbate her lumbar condition. If pain persists despite physical therapy, consideration will be given to sacroiliac joint injections or a steroidal epidural injection. The patient is advised to maintain good posture, manage weight, and ensure adequate hydration to support spinal health. All questions and concerns have been answered and patient agreed with the treatment plan. Follow up as needed. Patient was informed and verbally consented to the use of an ambient scribe for clinic note documentation during this visit. Orders: Orders PT Evaluation and Treatment Today G89.29 - Other chronic pain, M47.817 - Spondylosis without myelopathy or radiculopathy, lumbosacral region, M53.3 - Sacrococcygeal disorders, not elsewhere classified, M54.50 - Low back pain, unspecified, M62.830 - Muscle spasm of back Coding Level of Care Code Est Pt Level 4 (98588) Complex EM visit Add On G2211 Diagnoses Muscle spasm of back M62.830 Lumbosacral spondylosis M47.817 Sacroiliac joint pain M53.3 Chronic low back pain without sciatica M54.50; G89.29
[2025-01-27 10:56] VITALS: BP 195/106; PULSE 66; O2SAT 98; BMI 38.2
--- OUTSIDE RECORDS SUMMARY | 2025-01-27 13:18 | XMS_ITS | Clinical Summary ---
Author Organization [facility] Address 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 Not on jay e 01/21/2025 Are you concerned about learning? Not on file 01/21/2025 No 01/21/2025 No 01/21/2025 Food Answer Date Recorded Within the past [...] is your housing situation today? I have papo sing 01/17/2023 How many times have you moved in the past 12 mon th? One time 01/17/2023 Paying for Meds Answer [...] 01/17/2023 Digital Access Answer Date Recorded No 01/21/2025 No 01/21/2025 Reliable internet access at home? Not on file 01/21/2025 Device with a working camera? Not on file Intimate Partner Violence Answer Date R ecorded [...] this topic Medical Devices Implanted Type Area Patent Legal Assistant Device Identifier Shelf Expiration Date Model / [...] SEE NARRATIVE - 01/21/2021 4:28 PM EDT [address] [address] Gas Meter Installer: Courtney Mahoney MD TRANSMISSION TECHNICIAN Cytology Report FINAL DIAGNOSIS A. PAP SMEAR [...] 52, 56, 58, 59, 66, 68) by [place] Onclarity HR-HPV analysis. Clinical correlation is advised. This HPV test was performed at [facility], [address] [place] [address]. This test has been FDA approved for SurePath cervical cytology specimens. The accuracy and precision of this test for all other specimen sources has been verified in the Cytopathology Laboratory of the [facility] and has not been cleared or approved by the U.S. Food and Drug Administration. Clinical correlation is advised. CLINICAL HISTORY Date of Last Menstrual Period: 12-25-2020 Other Clinical Conditions: Screening Pap SPECIMEN SOURCE A: PAP SMEAR (SUREPATH) CE Patient Name: RADHIKA RANDOLPH : 1990 (Age: 30) Sex: F Institution: [facility] Location: [facility] Date of Collection: 01/13/2021 Date of Reported: 01/21/2021 16:28 Results to: Lani Stout MSN, BSN us Lani Stout ARTIST MANAGER CYTOLOGY ORDERABLES Final Resul t SEE NARRATIVE from Last 3 Months or Most Recently Relevant to [place] [address] [employer] [address] [address] [employer] [address] [address] [employer] [address] [address] [employer] [address] [address] [employer] [address] [address] [employer] Member Subscriber Plan / Payer (Ef fective 2019-Present) Name:Radhika Randolph Relation to Subscriber:Self Name:Radhika Randolph Payer ID:[id number] (NAIC) Type:PPO Address: [place] [id number] [address] [employer] Member Subscriber Plan / Payer (Ef fective 2019-Present) Name:Radhika Ranodlph Relation to Subscriber:Self Name:Radhika Randolph Payer ID:[id number] (NAIC) Type:PPO Address: [address] [address] [employer] Member Subscriber Plan / Payer (Ef fective 2019-Present) Name:Radhika Randolph Relation to Subscriber:Self Name:Radhika Randolph Payer ID:[id number] (NAIC) Type:PPO Address: [place] [phone] [place] [address] [facility] [employer] Care Teams Cattle Killer Relationship Specialty Start Date End Date Unknown, Unknown, MD PCP - General 06/19/23 Additional Source Comments The information contained in this document represents components of the legal health record. It is not the complete legal health record.[facility]
== END 2025-01-27 11:08 | disposition home or self-care (01) ==
LOC: HO.PMC 10:49
PROVIDERS: Visit Provider Nurse Practitioner Family
DX: M62.830 Muscle spasm of back (principal); M47.817 Spondylosis without myelopathy or radiculopathy, lumbosacral region; M53.3 Sacrococcygeal disorders, not elsewhere classified; M54.50 Low back pain, unspecified; G89.29 Other chronic pain
CPT/HCPCS: 99214; G2211

== ENCOUNTER → 2025-01-27 10:48 | Outpatient (BNVA) | payer OTHER, SELFPAY | PROVIDERS: Visit Provider Nurse Practitioner Family | DX: M62.830 Muscle spasm of back (principal); M47.817 Spondylosis without myelopathy or radiculopathy, lumbosacral region; M53.3 Sacrococcygeal disorders, not elsewhere classified; M54.50 Low back pain, unspecified; G89.29 Other chronic pain | CPT/HCPCS: 99212 ==

== ENCOUNTER → 2025-01-29 13:29 | Outpatient (BNVA) | payer OTHER, SELFPAY | PROVIDERS: Visit Provider Emergency Medicine | DX: M51.17 Intervertebral disc disorders with radiculopathy, lumbosacral region (principal) | CPT/HCPCS: 99213 ==

== ENCOUNTER → 2025-03-07 13:20 | Outpatient (BNVA) | payer OTHER, SELFPAY | PROVIDERS: Visit Provider Emergency Medicine | DX: M51.369 Other intervertebral disc degeneration, lumbar region without mention of lumbar back pain or lower extremity pain (principal) | CPT/HCPCS: 99213 ==

== ENCOUNTER 2025-03-17 16:23 | Outpatient (AMB) | payer OTHER, SELFPAY ==
[2025-03-17 16:41] VITALS: BP 160/100; PULSE 96; O2SAT 99; BMI 38.2
--- NOTE | 2025-03-17 16:41 | A.OFFPC_ITS ---
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 Her symptoms began worsening over the last couple of months, following a breakup in November. She states her situation is complicated by financial distress, which necessitates finding a second job. Associated symptoms include anorexia, insomnia, difficulty with focus and memory. No suicidal or homicidal ideation. She has a history of situational depression related to relationship difficulties, was previously treated with escitalopram (Lexapro) for about 4-5 months, which she recalls tolerating well. Her prior regimen started at 5 mg and was increased to 10 mg. She tapered herself off the medication after she started feeling better. The patient reports a supportive social network consisting of her sister and a best friend. [facility] Medical History Elbow fracture, left No pertinent past medical history Surgical History H/O radiofrequency ablation (RFA) of nerve of lumbar spine (12/20/24) Social History Household Members: Significant Other Housing: Apartment Are you a primary post acute care nurse to a significant other at home: No Do you presently have visiting nurse or other home services: No Alcohol intake: current Alcohol intake frequency: a few times a week Alcohol type: hard liquor and other Patient Tobacco Use Status: Current everyday Tobacco user Tobacco use type: Smokeless Tobacco Cigarettes Per Day: 4 e-Cigarette/Vaping Use: Currently Using service: No Current occupational status: employed Current occupation: [employer] Cognitive needs: No Hearing needs: No Vision needs: No Questionnaire PHQ-9 Over the last 2 weeks, how often have you been bothered by any of the following problems? 1. Little interest or pleasure in doing things: several days 2. Feeling down, depressed, or hopeless: several days 3. Trouble falling or staying asleep, or sleeping too much: several days 4. Feeling tired or having little energy: several days 5. Poor appetite or overeating: several days 6. Feeling bad about yourself - or that you are a failure or have let yourself or your family down: not at all 7. Trouble concentrating on things, such as reading the newspaper or watching television: several days 8. Moving or speaking so slowly that other people could have noticed. Or the opposite - being so fidgety or restless that you have been moving around a lot more than usual: not at all 9. Thoughts that you would be better off or of hurting yourself in some way: not at all Total score: 6 Depression Screening Interpretation: Positive Depression Screening Done: Yes 18755 - PHQ-9 Billing: Yes Source: Developed by Drs. Kirt Rivera, Radhika oLtt, Abdon Thomas and colleagues, with an educational shane from [employer] Thrive Questionnaire Date Thrive assessed: 03/17/25 I am a: Patient What is your living situation today?: I have a steady place to live Within the past 12 months, did the food you bought not last and you didn't have the money to get more?: Never true Within the past 12 months, did you worry whether your food would run out before you got money to buy more?: Never true Do you have trouble paying for medicines?: No Do you have trouble getting transportation to medical appointments?: No Do you have trouble paying your heating and electricity bill?: No Do you have trouble taking care of your child, family member or friend?: No Do you have trouble with day-to-day activities such as bathing, preparing meals, shopping, managing finances, etc.?: No Are you currently unemployed and looking for a job?: No Are you interested in more education?: I choose not to answer this question Please select the resources that you would like help with: None Currently or been in a relationship where the following occur: No concerns reported THRIVE Score: 0 AUDIT C Alcohol Use Questionnaire (AUDIT-C) 1. How often do you have a drink containing alcohol?: 2-4 times a month 2. How many drinks containing alcohol do you have on a typical day when you are drinking?: 3 or 4 3. How often do you have six or more drinks on one occasion?: Less than monthly Total Score: 4 Score Reviewed/Action Taken: Yes SPENSER-7 AMB Questionnaire SPENSER-7 Date SPENSER - 7 assessed: 03/17/25 Feeling nervous, anxious, or on edge: 1 = Several days Not being able to stop or control worryin = Several days Worrying too much about different things: 1 = Several days Trouble relaxin = Several days Being so restless that it is hard to sit still: 1 = Several days Becoming easily annoyed or irritable: 1 = Several days Feeling afraid as if something awful might happen: 1 = Several days Total SPENSER-7 score (0-4 normal; 5-9 mild; 10-14 moderate; 15-21 severe): 7 Source: Developed by Drs. Kirt Rivera, Radhika Lott, Abdon Thomas and colleagues, with an educational shane from [employer] SPENSER-7 Assessment Billing SPENSER-7 Assessment Tool: SPENSER-7 Assessment 09472 Physical exam (Primary Care) Vital Signs: Last Vital Signs Pulse 96 03/17/25 16:41 BP 160/100 H 03/17/25 16:41 Pulse Ox 99 03/17/25 16:41 Oxygen Delivery Method Room Air 03/17/25 16:41 General: Well-appearing, in no acute distress, tearful throughout the visit. Cardiovascular: RRR, S1-S2 appreciated, no murmurs, rubs or gallops. Respiratory: Lungs clear to auscultation bilaterally, no wheezes or crackles BMI result Body Mass Index 38.2 Tobacco/Smoking Status: Tobacco use Status Tobacco use date assessed 03/17/25 03/17/25 16:44 Patient Tobacco Use Status Current everyday Tobacco 03/17/25 16:44 Tobacco use type Smokeless Tobacco 03/17/25 16:44 e-Cigarette/Vaping Use Currently Using 03/17/25 16:44 PHQ-9: PHQ-9 Score PHQ-9: Total score 6 03/17/25 17:53 Depression Screening Interpretation: Positive Thrive Assessment: Date of Thrive Assessment Date Thrive assessed 03/17/25 03/17/25 16:44 Currently or been in a relationship where the following occur: No concerns reported Coding Level of Care Code Est Pt Level 4 (46529) Diagnoses Depression, unspecified depression type F32.A Depression Type: unspecified Anxiety F41.9 Additional Codes SPENSER-7 Assessment Billing - SPENSER-7 Assessment Tool: SPENSER-7 Assessment 12166 ([id number]) PHQ-9 - 44453 - PHQ-9 Billing: Yes ([id number]) Assessment & Plan Assessment & Plan (1) Depression: Code(s): F32.A - Depression, unspecified Category: Medical Qualifiers: Depression Type: unspecified Qualified Code(s): F32.A - Depression, unspecified (2) Anxiety: Code(s): F41.9 - Anxiety disorder, unspecified Category: Medical Plan Patient presenting with worsening symptoms of depression and anxiety, exacerbated by situational stressors including a recent break up, ongoing co- habitation with the ex partner and financial difficulties. SPENSER-7 score of 7 consistent with mild anxiety, PHQ-9 score of 6 consistent with mild depression. Given her prior positive response intolerance, will restart Lexapro 10 mg daily. May use hydroxyzine 25 mg q.i.d. p.r.n. and anxiety. Referral to counseling services also provided. Follow up with her PCP in 4 weeks. Patient advised to seek care in the emergency department if at any point she develops any feelings of suicidal ideation or homicidal ideation. Orders: Referrals Counseling Referral F32.A - Depression, unspecified, F41.9 - Anxiety disorder, unspecified Medications: New hydroxyzine HCl 25 mg PO QID PRN 60 tabs 1RF hydroxyzine escitalopram oxalate 10 mg PO DAILY 30 tabs 2RF Discontinued lorazepam take 1 hour prior to blood draw Discontinued Reason: Patient Completed Course 0.5 mg PO DAILY PRN 1 tab 0RF anxiety
--- OUTSIDE RECORDS SUMMARY | 2025-03-17 18:51 | XMS_ITS | Clinical Summary ---
Author Organization 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 PAP SMEAR [...] 56, 58, 59, 66, 68) by Daina Kinsey Onclarity HR-HPV analysis. Clinical correlation is advised. This HPV test was performed at [facility], [address] [place] [address]. This test has been FDA approved for SurePath cervical cytology specimens. The accuracy and precision of this test for all other specimen sources has been verified in the Cytopathology Laboratory of the [facility] and has not been cleared or approved by the U.S. Food and Drug Administration. Clinical correlation is advised. CLINICAL HISTORY Date of Last Menstrual Period: 12-25-2020 Other Clinical Conditions: Screening Pap SPECIMEN SOURCE A: PAP SMEAR (SUREPATH) CE Patient Name: RADHIKA RANDOLPH : 1990 (Age: 30) Sex: F Institution: [facility] Location: [facility] Date of Collection: 01/13/2021 Date of Reported: 01/21/2021 16:28 Results to: Lani Stout MSN, BSN us Lani Stout YOUTH MINISTRY DIRECTOR CYTOLOGY ORDERABLES Final Resul t SEE NARRATIVE from Last 3 Months or Most Recently Relevant to [place] [address] [employer] [address] [address] [employer] [address] [address] [employer] [address] [address] [employer] [address] [address] [employer] [address] [address] [employer] Member Subscriber Plan / Payer (Ef fective 2019-Present) Name:Radhika Randolph Relation to Subscriber:Self Name:Radhika Randolph Payer ID:[id number] (NAIC) Type:PPO Address: [place] [phone] [address] [employer] Member Subscriber Plan / Payer (Ef fective 2019-Present) Name:Radhika Randolph Relation to Subscriber:Self Name:Radhika Randolph Payer ID:[id number] (NAIC) Type:PPO Address: [address] [address] [place] [employer] Member Subscriber Plan / Payer (Ef fective 2019-Present) Name:Radhika Randolph Relation to Subscriber:Self Name:Radhika Randolph Payer ID:[id number] (NAIC) Type:PPO Address: [place] [phone] [place] [address] [facility] [employer] Care Teams Windows And Doors Installer Relationship Specialty Start Date End Date Unknown, Unknown, MD PCP - General 06/19/23 Additional Source Comments The information contained in this document represents components of the legal health record. It is not the complete legal health record.[facility]
== END 2025-03-17 17:35 | disposition home or self-care (01) ==
LOC: HO.HMCH 16:24
PROVIDERS: Visit Provider Student in an Organized Health Care Education/Training Program
DX: F32.A Depression, unspecified (principal); F41.9 Anxiety disorder, unspecified

== ENCOUNTER → 2025-03-17 16:23 | Outpatient (BNVA) | payer BC, OTHER, SELFPAY | PROVIDERS: Visit Provider Student in an Organized Health Care Education/Training Program | DX: Z13.31 Encounter for screening for depression (principal); Z13.39 Encounter for screening examination for other mental health and behavioral disorders | CPT/HCPCS: 96127 ==

== ENCOUNTER → 2025-03-25 10:02 | Outpatient (BNVA) | payer OTHER, SELFPAY | PROVIDERS: Visit Provider Emergency Medicine | DX: M54.16 Radiculopathy, lumbar region (principal); Z02.79 Encounter for issue of other medical certificate | CPT/HCPCS: 99213 ==